=== PATIENT | female | born 1945 | race Caucasian/White ===

== ENCOUNTER → 2017-10-30 | Day surgery (SDC) | payer MEDICARE ==
[~2017-10-30] MED LIST: ACETAMINOPHEN325 M1 GT; ATORVASTATIN CA10 MG PO; COGENTIN1 MG PO; CYMBALTA20 MG GT; HALDOL5 MG GT; HYOSCYAMINE0.125 MG GT; LIPITOR20 MG GT; METOPROLOL TART25 MG GT; OMEPRAZOLE40 MG GT; PROPOFOL IV EMULSION 10 MG/ML 50 ML VIAL ONE; VENLAFAXINE HCL75 MG PO; Z.0.LEVOXYL100 MCG GT; Z.0.PRILOSEC40 MG PO; Z.0.ZOCOR20 MG PO
[2017-10-30 14:38] LABS: BASOPHILS # (AUTO) 0.1 (0.0-0.1); BASOPHILS % 0.6 % (0.0-1.0); EOSINOPHILS # (AUTO) 0.2 (0.0-0.4); EOSINOPHILS % 2.3 % (0.0-6.0); HEMATOCRIT 35.4 % (34.2-44.1); HEMOGLOBIN 11.6 g/dL (12.0-16.0); LYMPHOCYTES # (AUTO) 3.4 (1.0-3.2); LYMPHOCYTES % 39.5 % (18.0-39.1); MEAN CORPUSCULAR HEMOGLOBIN 30.3 pg (28-32); MEAN CORPUSCULAR HGB CONC 32.8 g/dL (31-35); MEAN CORPUSCULAR VOLUME 92.4 fL (81-99); MONOCYTES # (AUTO) 0.6 (0.2-0.8); MONOCYTES % 7.5 % (4.4-11.3); NEUTROPHILS # (AUTO) 4.3 (2.1-6.9); PLATELET COUNT 141 x10e3/uL (140-360); RED BLOOD COUNT 3.83 x10e6/uL (3.6-5.1); RED CELL DISTRIBUTION WIDTH 13.9 % (11.7-14.4)
--- NOTE | 2017-10-30 16:50 | Operative Report ---
DATE OF PROCEDURE: October 30, 2017 REFERRING PHYSICIAN: Dr. López. PROCEDURE PERFORMED: EGD with esophageal dilatation and biopsies. INDICATIONS FOR PROCEDURE: Is dysphagia, stricture on modified barium swallow. MEDICATION: Patient was done under MAC. Please see anesthesiologist's note. PROCEDURE: With patient in the left lateral decubitus position, flexible fiberoptic Olympus gastroscope was introduced into the esophagus under direct visualization without any difficulty. There was a tight stricture noted at approximately 30 cm from the incisors. It could not be traversed with the scope and it was dilated to size 38-Mozambican per Jones dilators. The scope was then re introduced into the esophagus and it traversed the stricture with ease which was measured at approximately 5 cm. The scope was then advanced with ease into the stomach traversing a moderate-sized hiatal hernia. The mucosa overlying the antrum and the body revealed some patchy erythema and low-grade to moderate edema and biopsies were obtained and sent to stain for H. pylori. The bumper of the PEG was noted to be in a good position. The pylorus was of normal contour and shape. Was intubated with ease and the scope was advanced all the way to the 2nd portion of the duodenum. The scope was then withdrawn slowly. Mucosa overlying the proximal 2nd portion and the duodenal bulb appeared to be within normal limits. The scope was then withdrawn back into the stomach and retroflexed and mucosa overlying the fundus appeared to be within normal limits. The previously described hiatal hernia was also noted in the retroflexed position. The scope was then straightened out. The stomach was decompressed. Scope was subsequently withdrawn. Patient tolerated procedure well. IMPRESSION: 1. Tight stricture distal esophagus dilated to size 38-Mozambican Jones. 2. Moderate-sized hiatal hernia. 3. Gastritis biopsied. Biopsies sent to stain for H. pylori. 4. Status post PEG tube insertion. PLAN: Follow up histology. Initiate Protonix 40 mg 1 p.o. a.c. b.i.d. The patient will need additional dilatation of the aforementioned stricture. Will discuss with the patient and her on their followup office visit. Job#: [id number] cc:SHERRI CRUM MD
== END | disposition home or self-care (01) ==
LOC: OR 12:57
PROVIDERS: ATTEND Internal Medicine Gastroenterology
DX: K22.2 Esophageal obstruction (principal); K29.70 Gastritis, unspecified, without bleeding; K44.9 Diaphragmatic hernia without obstruction or gangrene; Z93.1 Gastrostomy status; E03.9 Hypothyroidism, unspecified; F03.90 Unspecified dementia, unspecified severity, without behavioral disturbance, psychotic disturbance, mood disturbance, and anxiety; F31.9 Bipolar disorder, unspecified; F25.9 Schizoaffective disorder, unspecified
CPT/HCPCS: 36415; 43450; 85025; 88305; 88312; 93005

== ENCOUNTER → 2017-11-27 | Day surgery (SDC) | payer MEDICARE ==
[~2017-11-27] MED LIST changes: +FENTANYL CITRATE/PF 100MCG/2 ML INJ ONE; +LIDOCAINE HCL 2% LOCAL INJ 5 ML SDV VIAL INJ ONE; +ONDANSETRON HCL INJ 2 MG/ML VIAL ONE; +PANTOPRAZOLE 40 MG 10ML VIAL ONE
--- NOTE | 2017-11-27 11:51 | Operative Report ---
DATE OF PROCEDURE: November 27, 2017 REFERRING PHYSICIAN: Dr. López PROCEDURE PERFORMED: Esophagogastroduodenoscopy with biopsies and esophageal dilatation. INDICATIONS FOR PROCEDURE: Dysphagia, nausea, vomiting, history of tight esophageal stricture. MEDICATION: Patient was done under MAC. Please see anesthesiologist's note. PROCEDURE: With the patient in the left lateral decubitus position, the flexible fiberoptic Olympus gastroscope was introduced into the esophagus under direct visualization without any difficulty. The distal esophagus was tightly strictured and could not be traversed with the scope. The esophagus was then dilated to size 38-Kenyan Jones. The scope was then reintroduced into the esophagus, and the scope was then advanced with ease past the strictured distal esophagus, which was significantly traumatized with the dilatation with some mucosal tearing. There were some concentric rings noted in the esophagus which were suspicious for eosinophilic esophagitis. The scope was then advanced into the stomach, traversing a moderate-size hiatal hernia. Mucosa overlying the antrum and the body revealed some minimal patchy erythema. The bumper of the G-tube was noted to be in good position. The pylorus was intubated with ease, and the scope was advanced all the way to the 2nd portion of the duodenum. The scope was then withdrawn slowly. Mucosa overlying the proximal portion of the duodenal bulb appeared to be within normal limits. The scope was then withdrawn back into the stomach and retroflexed. Mucosa overlying the fundus appeared to be within normal limits. The previously described hiatal hernia was also noted in the retroflexed position. The scope was then straightened out. Stomach was decompressed. Biopsies of the esophagus were obtained on the way out to rule out eosinophilic esophagitis. Patient tolerated the procedure well. IMPRESSION 1. Distal esophageal stricture, tight, could not traverse with the scope initially. Dilated to size 38-Kenyan Jones. Biopsies were obtained to rule out eosinophilic esophagitis. 2. Moderate-size hiatal hernia. 3. Gastritis, minimal. 4. Gastrostomy tube bumper was noted to be in good position. PLAN: Follow up histology. Increase omeprazole to 40 mg 1 p.o. a.c. b.i.d. Patient will need additional dilatation in 10 days to 2 weeks. Job#: [id number] cc:SHERRI LÓPEZ MD
== END | disposition home or self-care (01) ==
LOC: OR 09:09
PROVIDERS: ATTEND Internal Medicine Gastroenterology
DX: K22.2 Esophageal obstruction (principal); K29.70 Gastritis, unspecified, without bleeding; K20.8 Other esophagitis; K44.9 Diaphragmatic hernia without obstruction or gangrene; Z93.1 Gastrostomy status; K22.8 Other specified diseases of esophagus; K21.9 Gastro-esophageal reflux disease without esophagitis; I10 Essential (primary) hypertension; E03.9 Hypothyroidism, unspecified; D64.9 Anemia, unspecified; F32.9 Major depressive disorder, single episode, unspecified; F03.90 Unspecified dementia, unspecified severity, without behavioral disturbance, psychotic disturbance, mood disturbance, and anxiety
CPT/HCPCS: 43239; 43450; J2001; J2405

== ENCOUNTER → 2017-12-10 | Day surgery (SDC) | payer MEDICARE ==
[~2017-12-10] MED LIST changes: -FENTANYL CITRATE/PF 100MCG/2 ML INJ ONE; -LIDOCAINE HCL 2% LOCAL INJ 5 ML SDV VIAL INJ ONE; +METOCLOPRAMIDE HCL 10 MG/2ML VIAL ONE; -PANTOPRAZOLE 40 MG 10ML VIAL ONE; +PROPOFOL IV EMULSION 10 MG/ML 20 ML VIAL ONE; -PROPOFOL IV EMULSION 10 MG/ML 50 ML VIAL ONE
--- OUTSIDE RECORDS SUMMARY | 2017-12-10 12:23 | XMS REPORT ---
Author Author [facility] Address Unknown Phone Unavailable Care Team Providers Care Air Bag Stripper Name Role Phone ARLEEN MENDOZA Unavailable Unavailable Problems This patient has no known problems. Allergies, Adverse Reactions, Alerts This patient has no known allergies or adverse reactions. Medications This patient has no known medications. Results Test Description Test Time Test Comments Text Results Atomic Results Result Comments CT ABDOMEN/PELVIS WO [place] [address] Patient Name: HENRIQUE ROLLE MR #: [id number] : 1945 Age/Sex: 72/F Req # : [id number] Adm Physician: Ordered by: SHIVAM URIBE MD Report # : [id number] Location: ER Room/Bed: Procedure: [id number] CT/CT ABDOMEN/PELVIS WO Exam Date: 07/29/17 Exam Time: 2040 REPORT STATUS: Signed EXAM: CT Abdomen and Pelvis WITHOUT contrast INDICATION: Left lower quadrant pain, fever COMPARISON: None. TECHNIQUE: Abdomen and pelvis were scanned utilizing a multidetector helical scanner from the lung base to the pubic symphysis without administration of IV contrast. Absence of intravenous contrast decreases sensitivity for detection of focal lesions and vascular pathology. Coronal and sagittal reformations were obtained. Routine protocol was performed. IV CONTRAST: None. ORAL CONTRAST: Gastrografin RADIATION DOSE: Total DLP: 614.47 mGy*cm Estimated effective dose: (DLP x 0.015 x size factor) mSv COMPLICATIONS: None FINDINGS: LINES and TUBES: None. LOWER THORAX: Circumferential thickening of the lower thoracic esophagus. The lungs are clear with minimal bibasilar atelectasis HEPATOBILIARY: There is a 1.5 cm simple cyst in segment 6 of the liver, series 2, image 26 1.7 cm hypodensity consistent with simple cyst in segment 7, series 2, image 18. No biliary ductal dilation. GALLBLADDER: There are cholecystectomy clips. SPLEEN: No splenomegaly. PANCREAS: No focal masses or ductal dilatation. ADRENALS: No adrenal nodules KIDNEYS/URETERS: No hydronephrosis. No cystic or solid mass lesions. No stones. GI TRACT: No abnormal distention, wall thickening, or evidence of bowel obstruction. Appendix is normal. PELVIC ORGANS/BLADDER: The visualized bladder is obscured by beam hardening artifact from bilateral hip arthroplasty. The visualized rectum, uterus and adnexa are unremarkable. LYMPH NODES: No lymphadenopathy. VESSELS: There is moderate atherosclerotic disease in the aorta and major arterial branches. PERITONEUM / RETROPERITONEUM: No free air or fluid. BONES: There are degenerative changes in the lumbar spine. Bilateral total hip arthroplasty which limits evaluation of the pelvis. SOFT TISSUES: Unremarkable. IMPRESSION: 1. No evidence of acute intra-abdominal or pelvic abnormality. 2. Circumferential thickening of the lower thoracic esophagus may represent esophagitis in the appropriate clinical setting. Correlation with nonemergent EGD is recommended if clinically feasible 3. Liver cysts. 4. Degenerative changes of the thoracolumbar spine. Signed by: Dr. Lars Mcghee M.D. on 07/29/2017 9:19 PM Dictated By: LARS PETTY MD 18 Transcribed By: GUILLAUME on 07/29/172118 COPY TO: SHIVAM URIBE MD CT BRAIN WO [place] [address] Patient Name: HENRIQUE ROLLE MR #: [id number] : 1945 Age/Sex: 72/F Req #: [id number] Adm Physician: Ordered by: ARLEEN MENDOZA MD Report #: [id number] Location: Room/Bed: Procedure: [id number] CT/CT BRAIN WO Exam Date: 07/29/17 Exam Time: 1748 REPORT STATUS: Signed Exam: Head CT without contrast History: Altered mental status Comparison studies: None Technique: Axial images were obtained from the skull base to the vertex. Coronal and sagittal images reconstructed from the axial data. Intravenous contrast: None Findings: Exam is somewhat limited by artifacts related to patient motion artifact. Evaluation of the posterior fossa is especially limited. Scalp: No abnormalities. Bones: No fractures, blastic or lytic lesions. Brain sulci: Appropriate for age. Ventricles: Normal in size and configuration. No hydrocephalus. Extra-axial spaces: No masses, no fluid collection. Parenchyma: No gross masses, acute hemorrhage, or large acute cortical vascular insults. Sellar/suprasellar region: No abnormalities. Craniocervical junction: Patent foramen magnum. No Chiari one malformation. Incidental findings: Atherosclerotic calcifications in the carotid siphons. IMPRESSION: 1. Exam is limited by artifacts related patient motion. 2. No gross acute intracranial abnormalities. 3. Mild age-related generalized volume loss. Signed by: Dr. Federico Ga M.D. on 07/29/2017 8:43 PM Dictated By: FEDERICO GA MD 42 Transcribed By: GUILLAUME on 07/29/172042 COPY TO: ARLEEN MENDOZA MD CHEST 2 VIEWS [place] [address] Patient Name: HENRIQUE ROLLE MR #: [id number] : 1945 Age/Sex: 72/F Req #: [id number] Adm Physician: Ordered by: ARLEEN MENDOZA MD Report #: [id number] Location: Room/Bed: Procedure: [id number] DX/CHEST 2 VIEWS Exam Date: Exam Time: REPORT STATUS: Signed PROCEDURE: Frontal and lateral views of the chest. COMPARISON: 04/19/2017 INDICATIONS: SEPSIS, DEHYDRATION FINDINGS: Lines/tubes: None. Lungs: The lungs are well inflated and clear. There is no evidence of pneumonia or pulmonary edema. A 1.4 cm rounded opacity projected over the left midlung appears to be a button external to the patient. Pleura: There is no pleural effusion or pneumothorax. Heart and mediastinum: The heart and the mediastinum are normal. Bones: Multilevel degenerative changes of the thoracic spine. Severe degenerative changes of the shoulders, unchanged. IMPRESSION: 1. No acute cardiopulmonary disease. 2. 1.4 cm round opacity projected over the left midlung appears to be a button external to the patient. Consider repeat imaging with garment removed. Dictated by: Kwaku Christianson M.D. on 07/29/2017 at 18:27 Electronically approved by: Kwaku Christianson M.D. on 07/29/2017 at 18:27 Dictated By: KWAKU CHRISTIANSON MD 26 Transcribed By: ANALILIA on 07/29/171826 COPY TO: ARLEEN MENDOZA MD
--- NOTE | 2017-12-10 15:43 | Operative Report ---
DATE OF PROCEDURE: December 10, 2017 REFERRING PHYSICIAN: Dr. López. PROCEDURE PERFORMED: Esophagogastroduodenoscopy with esophageal dilatation. INDICATIONS FOR ESOPHAGOGASTRODUODENOSCOPY: Dysphagia to solids. History of tight esophageal stricture. MEDICATION: Patient was done under MAC. Please see anesthesiologist's note. PROCEDURE: With the patient in the left lateral decubitus position, the flexible fiberoptic Olympus gastroscope was introduced into the esophagus under direct visualization without any difficulty. The esophagus appeared to have restrictured again to the point where the scope could not traverse the strictured area. The scope was then withdrawn, and the esophagus was then dilated to size 38-Persian Jonse. The scope was then reintroduced into the esophagus, and several tears were noted in the esophagus but the scope traversed the strictured area with ease into the stomach. There was a moderate-sized hiatal hernia as described earlier. The scope was then withdrawn, and patient tolerated the procedure well. IMPRESSION: 1. Tight long stricture, distal esophagus, dilated to a size 38-Persian Jones. 2. Moderate-sized hiatal hernia. 3. Gastritis, mild. PLAN: Continue omeprazole 40 mg 1 p.o. a.c. b.i.d. Will attempt to redilate in 1 week. If esophagus restrictures again in 1 week to the same degree as was encountered today, will consider a referral to Dr. Duron at the [facility]. Job#: [id number] EV cc:SHERRI LÓPEZ MD
== END | disposition home or self-care (01) ==
LOC: OR 12:20
PROVIDERS: ATTEND Internal Medicine Gastroenterology
DX: K22.2 Esophageal obstruction (principal); K29.70 Gastritis, unspecified, without bleeding; K20.8 Other esophagitis; K21.9 Gastro-esophageal reflux disease without esophagitis; K44.9 Diaphragmatic hernia without obstruction or gangrene; I10 Essential (primary) hypertension; E03.9 Hypothyroidism, unspecified; I49.1 Atrial premature depolarization; R32 Unspecified urinary incontinence; F31.9 Bipolar disorder, unspecified; F03.90 Unspecified dementia, unspecified severity, without behavioral disturbance, psychotic disturbance, mood disturbance, and anxiety
CPT/HCPCS: 43235; 43450; J2405; J2765

== ENCOUNTER → 2017-12-16 | Day surgery (SDC) | payer MEDICARE ==
[~2017-12-16] MED LIST changes: +FENTANYL CITRATE/PF 100MCG/2 ML INJ ONE; +LIDOCAINE HCL 2% LOCAL INJ 5 ML SDV VIAL INJ ONE; -METOCLOPRAMIDE HCL 10 MG/2ML VIAL ONE; +MIDAZOLAM HCL 2 MG/2 ML VIAL ONE; -ONDANSETRON HCL INJ 2 MG/ML VIAL ONE
--- NOTE | 2017-12-16 10:57 | Operative Report ---
DATE OF PROCEDURE: December 16, 2017 REFERRING PHYSICIAN: Dr. López PROCEDURE PERFORMED: Esophagogastroduodenoscopy with esophageal dilatation. INDICATIONS FOR EGD: Dysphagia to solids and history of a tight esophageal stricture. MEDICATION: Patient was done under MAC. Please see anesthesiologist's note. PROCEDURE: With the patient in the left lateral decubitus position, the flexible fiberoptic Olympus gastroscope was introduced into the esophagus under direct visualization without any difficulty. The tight stricture was noted at 30 cm from the incisors, which the scope could not traverse. The scope was then withdrawn, and the esophageal stricture was then dilated to size 42-Georgian Jones. The scope was then reintroduced into the esophagus, and the strictured 4-cm segment was traversed with ease with the scope. The scope was then traversed approximately a 4-5 cm hiatal hernia. Mucosa overlying the antrum revealed some patchy erythema. The bumper of the G-tube was noted to be in good position. The pylorus was of normal contour and shape. It was intubated with ease. The scope was advanced into the stomach, and the bumper of the G-tube was noted to be in good position. There was some patchy erythema noted in the antrum. The scope was retroflexed, and the previously described large hiatal hernia was also noted in the retroflexed position. The scope was then straightened out. It was subsequently withdrawn. Patient tolerated the procedure well. IMPRESSION 1. Long tight esophageal stricture dilated to size 42-Georgian Jones. 2. Large hiatal hernia. 3. Bumper of gastrostomy tube in good position. Increase omeprazole to 40 mg 1 p.o. a.c. b.i.d. Case discussed with Dr. Foreign Russ, a general surgeon. Will set up an appointment with his office for surgical opinion. Job#: [id number] RI cc:MD SHERRI SHELBY MD
== END | disposition home or self-care (01) ==
LOC: OR 08:53
PROVIDERS: ATTEND Internal Medicine Gastroenterology
DX: K22.2 Esophageal obstruction (principal); K44.9 Diaphragmatic hernia without obstruction or gangrene; Z93.1 Gastrostomy status; K21.9 Gastro-esophageal reflux disease without esophagitis; I10 Essential (primary) hypertension; I49.3 Ventricular premature depolarization; F03.90 Unspecified dementia, unspecified severity, without behavioral disturbance, psychotic disturbance, mood disturbance, and anxiety
CPT/HCPCS: 43235; 43450; J2001; J2250

== ENCOUNTER → 2018-01-09 | Outpatient (CLI) | payer MEDICARE ==
[~2018-01-09] MED LIST changes: +DIATRIZOATE MEGL/DIATRIZOA SOD 120 ML BTL PO ONE; -FENTANYL CITRATE/PF 100MCG/2 ML INJ ONE; -LIDOCAINE HCL 2% LOCAL INJ 5 ML SDV VIAL INJ ONE; -MIDAZOLAM HCL 2 MG/2 ML VIAL ONE; -PROPOFOL IV EMULSION 10 MG/ML 20 ML VIAL ONE
--- NOTE | 2018-01-09 09:43 | Diagnostic Imaging Report ---
PROCEDURE:X-RAY UPPER GI SERIES WITH AIR CONTRAST COMPARISON:[facility], CT, CT ABDOMEN/PELVIS WO, 07/29/2017, 20:41. INDICATIONS:Presurgical evaluation. Distal esophageal stricture. Technique: Thin and thick barium was administered for the patient to drink. The patient cannot tolerate effervescent crystals for gaseous distention of the esophagus. Subsequently, gas was instilled via the indwelling gastrostomy. Fluoroscopy time: 2.1 minutes. Cumulative air kerma: 15.93 mGy. FINDINGS: Distal esophageal stricture spanning from about the level of T7-T8 through the gastroesophageal junction. Resulting occasional retrograde pulsion and bolus stasis. No aspiration. Stomach: Small sliding-type hiatal hernia. Mucosal filling defect at the cardia (see image 504/1008). The stomach otherwise demonstrates normal mucosal contour and distensibility. The duodenal sweep is grossly unremarkable. CONCLUSION: 1. Distal esophageal stricture resulting in partial obstruction. 2. Small sliding-type hiatal hernia. 3. Filling defect at the gastric cardia concerning for an underlying mucosal-based mass. This corresponds to focal nodular, mass-like thickening as seen on the CT from July 29, 2017 (see image 42 series 301 over that study). Dictated by: Kaiden Herrera M.D. on 01/09/2018 at 9:43 Electronically approved by: Kaiden Herrera M.D. on 01/09/2018 at 9:43
== END ==
LOC: DX 08:00
PROVIDERS: ATTEND Surgery
DX: K22.2 Esophageal obstruction (principal)
CPT/HCPCS: 74220; 74246; Q9963

== ENCOUNTER 2018-02-10 07:21 | Inpatient (IN) | payer MEDICARE ==
[2018-02-03 11:23] LABS: BASOPHILS # (AUTO) 0.1 (0.0-0.1); BASOPHILS % 0.6 % (0.0-1.0); EOSINOPHILS # (AUTO) 0.1 (0.0-0.4); EOSINOPHILS % 0.7 % (0.0-6.0); HEMOGLOBIN 13.3 g/dL (12.0-16.0); LYMPHOCYTES # (AUTO) 3.3 (1.0-3.2); LYMPHOCYTES % 32.1 % (18.0-39.1); MEAN CORPUSCULAR HEMOGLOBIN 29.7 pg (28-32); MEAN CORPUSCULAR HGB CONC 32.4 g/dL (31-35); MEAN CORPUSCULAR VOLUME 91.5 fL (81-99); MONOCYTES # (AUTO) 0.7 (0.2-0.8); MONOCYTES % 6.4 % (4.4-11.3); NEUTROPHILS # (AUTO) 6.2 (2.1-6.9); PLATELET COUNT 320 x10e3/uL (140-360); RED BLOOD COUNT 4.48 x10e6/uL (3.6-5.1); RED CELL DISTRIBUTION WIDTH 14.9 % (11.7-14.4)
[2018-02-03 11:39] LABS: ANION GAP 13.6 mmol/L (8-16); BLOOD UREA NITROGEN 12 mg/dL (7-26); BUN/CREATININE RATIO 16 (6-25); CALCIUM 9.3 mg/dL (8.4-10.2); CARBON DIOXIDE 27 mmol/L (22-29); CHLORIDE 103 mmol/L (98-107); CREATININE, SERUM 0.76 mg/dL (0.57-1.11); EST GLOMERULAR FILTRATION RATE > 60 ML/MIN (60-); GLUCOSE 95 mg/dL (74-118); POTASSIUM 4.6 mmol/L (3.5-5.1); SODIUM 139 mmol/L (136-145)
--- NOTE | 2018-02-03 11:45 | Diagnostic Imaging Report ---
PROCEDURE: Frontal and lateral views of the chest. COMPARISON: Patients [facility], , CHEST 2 VIEWS, 07/29/2017, 17:48. INDICATIONS: PRE-OP FOR ESOPHAGEAL STRICTURE FINDINGS: Lines/tubes: None. Lungs: The lungs are mildly hyperinflated. Biapical pleural-parenchymal opacities suggestive of scarring. There is no evidence of pneumonia or pulmonary edema. Pleura: There is no pleural effusion or pneumothorax. Heart and mediastinum: The heart and the mediastinum are normal. Bones: No acute bony abnormality. Degenerative changes of the thoracic spine. Severe bilateral degenerative changes of the glenohumeral joints. IMPRESSION: 1. No acute cardiopulmonary disease. Libertad Hope M.D. Dictated by: Libertad Hope M.D. on 02/03/2018 at 11:46 Electronically approved by: Libertad Hope M.D. on 02/03/2018 at 11:46
[~2018-02-10] VITALS: Ht 167.6 cm; Wt 64.0 kg
[2018-02-10] VITALS (32 sets, daily range): BP systolic 94–135; BP diastolic 44–100
[~2018-02-10 07:21] MED LIST changes: -DIATRIZOATE MEGL/DIATRIZOA SOD 120 ML BTL PO ONE
[2018-02-10] MEDS ORDERED: HEPARIN SOD/SOD CHLORIDE 1,000 ML ONE (07:54)
[2018-02-10] MEDS ORDERED: MINERAL OIL STERILE 10ML VIAL ONE ×2 (09:32→11:54)
[2018-02-10] MEDS ORDERED: LEVOFLOXACIN 500MG/D5W 100ML 100 ML IV ONE (10:35)
[2018-02-10] MEDS ORDERED: ACETAMINOPHEN 1000 MG/100 ML IV PRN (16:45)
[2018-02-10] MEDS ORDERED: LEVOFLOXACIN 500MG/D5W 100ML 100 ML IV SCH (16:45)
[2018-02-10] MEDS: SODIUM CHLORIDE 0.9% 250ML IRRIG IR SCH ×2 (16:45→21:25)
[2018-02-10] MEDS ORDERED: FENTANYL CITRATE/PF 100MCG/2 ML INJ ONE (18:26)
[2018-02-10] MEDS ORDERED: MIDAZOLAM HCL 2 MG/2 ML VIAL ONE (18:26)
[2018-02-10] MEDS ORDERED: HALOPERIDOL 5 MG TAB PO PRN (18:45)
[2018-02-10] MEDS ORDERED: MIDAZOLAM HCL 25 MG in DEXTROSE 5% 50ML 45 ML IV PRN (18:45)
[2018-02-10] MEDS: MIDAZOLAM HCL 25 MG in DEXTROSE 5% 50ML 45 ML IV PRN ×2 (19:00→22:28)
[2018-02-10] MEDS: HYDROMORPHONE 1MG/1ML INJ IV PRN (19:00)
[2018-02-10] MEDS: DEXTROSE 5%/LACTATED RINGERS 1,000 ML IV SCH (19:15)
--- NOTE | 2018-02-10 19:52 | Diagnostic Imaging Report ---
EXAMINATION: CHEST SINGLE (PORTABLE) INDICATION: Post chest tube insertion COMPARISON: 02/03/2018. FINDINGS: AP view. Overlying artifact in the right hemithorax. TUBES and LINES: Right thoracostomy tube with distal tip projected on the right superior hemithorax medially. Tube (appearance similar to thoracostomy tube) projected on the left hemithorax with distal tip extending to the left in the neck, not included. Right IJ central venous catheter with distal tip projected on the mid SVC. Endotracheal tube with distal tip approximately 2.4 cm proximal to the uche. LUNGS: Patchy density in the mid lung bilaterally, right greater then left may be in part related to overlying artifact summation of shadows. PLEURA: No pleural effusion. Small left apical pneumothorax with a narrow gap of 5 mm. There is also a small left apical pneumothorax with an air gap of 1.4 cm. HEART AND MEDIASTINUM: The cardiomediastinal silhouette is unremarkable. BONES AND SOFT TISSUES: No acute osseous lesion. Degenerative changes of the glenohumeral joint bilaterally. UPPER ABDOMEN: No free air under the diaphragm. IMPRESSION: 1. Small right apical pneumothorax with left thoracostomy tube in place. 2. Small left apical pneumothorax with a gap of 1.4 cm. Signed by: Dr. Libertad Hope M.D. on 02/10/2018 7:48 PM
[2018-02-10 20:14] LABS: FREE THYROXINE INDEX 1.9018 (1.4-3.8); THYROID STIMULATING HORMONE 1.562 uIU/mL (0.350-4.940)
[2018-02-10] MEDS: METRONIDAZOLE 500MG/NS 100ML 100 ML IV SCH (21:24)
[2018-02-10] MEDS: PANTOPRAZOLE 40 MG 10ML VIAL IV SCH (21:24)
--- NOTE | 2018-02-10 22:08 | Operative Report ---
DATE OF PROCEDURE: February 10, 2018 PREOPERATIVE DIAGNOSIS: Lower esophageal stricture with inability to eat. POSTOPERATIVE DIAGNOSIS: Long lower esophageal stricture with inability to eat. OPERATION PERFORMED: Exploratory laparotomy and right thoracotomy, esophagogastrectomy with thoracoabdominal esophagogastrostomy and pyloroplasty. METAL MIXER: Dr. Ellis Russ and Jonny BAIRD. ANESTHESIA: General. COMPLICATIONS: None. ESTIMATED BLOOD LOSS: 250 mL. DESCRIPTION OF PROCEDURE: With the patient lying in bed in the supine position under good general endotracheal anesthesia, the abdomen was prepped with Betadine solution and draped in the usual manner. An upper midline incision was made. It was carried down through the subcutaneous tissue and through the midline fascia. The peritoneum was opened, and the abdomen was entered. Upon entering the abdominal cavity, some adhesions were encountered from the patient's previous cholecystectomy. All of these were slowly and carefully taken down so that we could mobilize the distal stomach and the duodenum, and this was done without any difficulty. After this was done, the peritoneum overlying the hiatus was then opened and the esophagus was dissected and retracted with a [place] drain. The short gastrics were then slowly and carefully taken down using the Enseal device. The old gastrostomy site was stapled with the KACIE 75 stapling device, and we thus had mobilized the entire upper half of the stomach without any difficulty. We decided at this point to go ahead and do the pyloroplasty first. The pylorus was then opened longitudinally without any difficulty and was then closed transversely using 2 layers of inner layer using a [place]-type suture of 3-0 chromic, and the outside layer was done with interrupted sutures of 3-0 silk. After this was done, the esophagus was then dissected in its entire abdominal component. The area around the esophagogastric junction, which was shown to be strictured on the preoperative upper GI series, actually seemed to be more pliable than we expected. The esophagus was then divided at the level of the lower esophagus as it joined the hiatus in the lower chest, and the stomach was similarly divided with an application of the TA-90 stapler and the esophagogastrectomy was performed. At this point, the esophagus was then opened, and what we found was that the patient had a continuing stricture and a very, very thickened esophagus that extended for several inches up into the lower chest, all the way up to the level of the lower pulmonary vein, and this stricture extended all the way up there, which was not what was suspected from the preoperative evaluation. At this point, it became evident that this could not be done entirely transabdominally and we would have to go through the chest to do the anastomosis. I scrubbed out of the case at this point, and I spoke to the patient's and explained to him that the operation could not be done entirely transabdominally due to the fact that there was a rather long stricture which was somewhat unsuspected from the preoperative evaluation and that we needed to go ahead and go through the chest in order to be able to bring up the stomach to a much higher position and in order to be able to do an anastomosis that would include resection of the entire strictured area as the esophagus in the distal portion of the chest was similarly very thickened and fibrotic. After doing this, the patient was reprepped and draped to include the right chest, and a right thoracotomy anterior incision was performed. It was carried down through the subcutaneous tissue, and the 5th interspace was picked and the intercostal muscle was divided and the chest was entered without any difficulty. At this point, we quickly identified the lower esophagus. There was again a lot of fibrosis of this tissue. We went ahead and proceeded to dissect it upwards all the way up to about the mid chest, at which point the esophagus appeared to be much more pliable. The esophagus was then divided at this point, and a lower esophageal segment was sent as a separate specimen. A 29 EEA stapler was then placed in the lower esophagus and fixed in place with a purse-string suture of 2-0 Prolene. The stomach that had been previously mobilized reached up into the chest without any difficulty, and a gastrotomy was then made at the area of the old gastrostomy tube, and the 29 EEA stapler was then brought out anteriorly in the fundus and joined with the anvil, and the stapler was then slowly and carefully closed and there was no tension whatsoever. The stapler was then fired, and two good doughnuts were obtained. Gloves and instruments were changed, and the anastomosis was then reinforced with several sutures of 2-0 silk. Once this was done, the nasogastric tube was properly placed into the stomach. The whole chest and abdomen were copiously irrigated with saline solution, and perfect hemostasis was ascertained. A number 32 chest tube was then placed at the anterior axillary line and brought out through a separate stab wound incision and placed posteriorly and sutured to the skin with number 1 Mersilene. The chest incision was closed first. Intercostals of number 1 chromic were used. The intercostal musculature was closed with a running suture of 0 Vicryl. The muscle layer was closed with a running suture of 0 Vicryl. The subcutaneous tissue was approximated with 2-0 chromic, and the skin was closed with a running vertical mattress suture of 3-0 nylon. Attention was then paid to the abdomen, and again good hemostasis was ascertained. The whole area was thoroughly irrigated and all the excess fluid was aspirated, and all of the incisions appeared to be intact and the wound was then closed in layers. The peritoneum was closed with a running suture of number 1 Vicryl. The midline fascia was closed with a running suture of number 1 Vicryl. A 1/4 inch Jeny drain was left in the subcutaneous tissue, and the skin was closed with clips. A dressing was applied. The sponge, lap and needle count was correct. The patient tolerated the procedure well and returned to the recovery room in stable condition. Job#: [id number]
[2018-02-10] MEDS: HALOPERIDOL 5 MG TAB PO SCH (22:22)
[2018-02-11] VITALS (92 sets, daily range): BP systolic 86–139; BP diastolic 38–96
[2018-02-11] MEDS: SODIUM CHLORIDE 0.9% 250ML IRRIG IR SCH ×6 (00:10→20:19)
[2018-02-11] MEDS: METRONIDAZOLE 500MG/NS 100ML 100 ML IV SCH ×4 (01:34→18:00)
[2018-02-11] MEDS: HYDROMORPHONE 1MG/1ML INJ IV PRN ×8 (01:55→22:30)
[2018-02-11] MEDS: MIDAZOLAM HCL 25 MG in DEXTROSE 5% 50ML 45 ML IV PRN ×5 (02:07→19:29)
[2018-02-11] MEDS: DEXTROSE 5%/LACTATED RINGERS 1,000 ML IV SCH ×3 (05:37→17:45)
[2018-02-11 06:09] LABS: BASOPHILS % 0.2 % (0.0-1.0); HEMATOCRIT 29.4 % (34.2-44.1); HEMOGLOBIN 9.8 g/dL (12.0-16.0); LYMPHOCYTES # (AUTO) 0.9 (1.0-3.2); LYMPHOCYTES % 6.1 % (18.0-39.1); MEAN CORPUSCULAR HEMOGLOBIN 30.3 pg (28-32); MEAN CORPUSCULAR HGB CONC 33.3 g/dL (31-35); MONOCYTES # (AUTO) 1.1 (0.2-0.8); MONOCYTES % 7.2 % (4.4-11.3); NEUTROPHILS # (AUTO) 12.8 (2.1-6.9); NEUTROPHILS % 86.2 % (38.7-80.0); PLATELET COUNT 246 x10e3/uL (140-360); RED BLOOD COUNT 3.23 x10e6/uL (3.6-5.1); RED CELL DISTRIBUTION WIDTH 14.6 % (11.7-14.4)
[2018-02-11 06:32] LABS: ALANINE AMINOTRANSFERASE 39 IU/L (0-55); ALBUMIN 2.2 g/dL (3.5-5.0); ALKALINE PHOSPHATASE 49 IU/L (40-150); ANION GAP 9.6 mmol/L (8-16); BLOOD UREA NITROGEN 10 mg/dL (7-26); BUN/CREATININE RATIO 14 (6-25); CALCIUM 7.7 mg/dL (8.4-10.2); CARBON DIOXIDE 20 mmol/L (22-29); CHLORIDE 112 mmol/L (98-107); CREATININE, SERUM 0.73 mg/dL (0.57-1.11); EST GLOMERULAR FILTRATION RATE > 60 ML/MIN (60-); GLUCOSE 214 mg/dL (74-118); POTASSIUM 3.6 mmol/L (3.5-5.1); SODIUM 138 mmol/L (136-145)
--- NOTE | 2018-02-11 06:47 | Diagnostic Imaging Report ---
EXAM: CHEST SINGLE (PORTABLE), AP 1 view INDICATION: Intubated COMPARISON: AP view of the chest February 10, 2018 FINDINGS: LINES/TUBES: Endotracheal tube terminates 4 cm above the uche. Nasal/orogastric tube courses below the diaphragm. Stable position of right internal jugular vein central line. Stable position of right chest tube. LUNGS: Hazy opacities in each lung. PLEURA: No effusions or pneumothorax. HEART AND MEDIASTINUM: Stable appearance. BONES AND SOFT TISSUES: No acute findings. IMPRESSION: No evidence of a pneumothorax. Signed by: Dr. Tessie Andujar M.D. on 02/11/2018 6:43 AM
[2018-02-11] MEDS: HALOPERIDOL 5 MG TAB PO SCH ×2 (09:00→15:47)
[2018-02-11] MEDS: LEVOFLOXACIN 500MG/D5W 100ML 100 ML IV SCH (11:45)
--- NOTE | 2018-02-11 15:43 | Consultation ---
DATE OF CONSULTATION: February 10, 2018 PULMONARY CONSULTATION Patient of Dr. Foreign Russ, Dr. López. HISTORY: Unfortunate 72-year-old woman with a history of esophageal stricture, which was complex requiring thoracoabdominal esophagogastrectomy and pyloroplasty today. She is currently intubated, awakening. PAST MEDICAL HISTORY: She has a history of bipolar disorder. She has had PEG in the past. She has had dilatation of esophagus in the past. HOME MEDICATIONS: Have included Synthroid, Lipitor, Cogentin, Haldol, Levoxyl . PHYSICAL EXAMINATION: GENERAL: She is a well-developed slight white female, awakening. VITAL SIGNS: Blood pressure 103/80, pulse 102. She is afebrile. HEAD: Normocephalic, atraumatic. EYES: Extraocular movements intact. LUNGS: Clear anteriorly. HEART: Regular rhythm. ABDOMEN: Midline surgical wound. EXTREMITIES: Not edematous. PLAN: To continue mechanical ventilator support. Check thyroid function. Resume home medications when feasible. Versed for sedation. Ventilator support at least overnight. Thank you for this kind referral. Job#: [id number]
[2018-02-11] MEDS: PANTOPRAZOLE 40 MG 10ML VIAL IV SCH (16:45)
[2018-02-11] MEDS ORDERED: SODIUM CHLORIDE 0.9% 500ML 500 ML IV ONE (18:30)
[2018-02-11] MEDS ORDERED: ONDANSETRON HCL INJ 2 MG/ML VIAL ONE (19:39)
[2018-02-11] MEDS ORDERED: PHENYLEPHRINE HCL 1% 10 MG/ML VIAL ONE (19:39)
[2018-02-11] MEDS ORDERED: SEVOFLURANE INHAL SOLN 250 ML PEN BTL ONE (19:39)
[2018-02-11] MEDS ORDERED: VASOPRESSIN INJ 20 UNIT/ML VIAL ONE (19:39)
[2018-02-11] MEDS ORDERED: EPHEDRINE SULFATE INJ 50 MG/10 ML SYR ONE (19:39)
[2018-02-11] MEDS ORDERED: PROPOFOL IV EMULSION 10 MG/ML 20 ML VIAL ONE (19:39)
[2018-02-11] MEDS ORDERED: ROCURONIUM BROMIDE 10 MG/ML 5ML VIAL ONE (19:39)
[2018-02-11] MEDS ORDERED: DEXAMETHASONE SOD PHOS INJ 4 MG/ML VIAL ONE (19:39)
[2018-02-11] MEDS ORDERED: LIDOCAINE HCL 2% LOCAL INJ 5 ML SDV VIAL INJ ONE (19:39)
[2018-02-11] MEDS: HALOPERIDOL LACTATE 5 MG/ML VIAL IM SCH (21:02)
[2018-02-12] VITALS (31 sets, daily range): BP systolic 83–125; BP diastolic 40–66
[2018-02-12] MEDS: METRONIDAZOLE 500MG/NS 100ML 100 ML IV SCH ×4 (00:16→18:12)
[2018-02-12] MEDS: SODIUM CHLORIDE 0.9% 250ML IRRIG IR SCH ×7 (00:16→21:27)
[2018-02-12] MEDS: MIDAZOLAM HCL 25 MG in DEXTROSE 5% 50ML 45 ML IV PRN (03:41)
[2018-02-12] MEDS: HYDROMORPHONE 1MG/1ML INJ IV PRN ×5 (04:02→19:15)
--- NOTE | 2018-02-12 05:55 | Diagnostic Imaging Report ---
EXAM: CHEST SINGLE (PORTABLE), AP 1 view INDICATION: Intubated, esophageal stricture COMPARISON: AP view of the chest February 11, 2018 FINDINGS: LINES/TUBES: Stable position of endotracheal tube, nasal/orogastric tube, right internal jugular vein central line and right chest tube. LUNGS: Stable opacities in each lung base. PLEURA: Trace right apical pneumothorax. HEART AND MEDIASTINUM: Stable appearance. BONES AND SOFT TISSUES: Subcutaneous emphysema right lateral chest wall. IMPRESSION: Trace right apical pneumothorax. Signed by: Dr. Tessie Andujar M.D. on 02/12/2018 5:52 AM
[2018-02-12] MEDS: DEXTROSE 5%/LACTATED RINGERS 1,000 ML IV SCH ×3 (06:02→20:00)
[2018-02-12 06:12] LABS: BASOPHILS % 0.3 % (0.0-1.0); EOSINOPHILS # (AUTO) 0.3 (0.0-0.4); EOSINOPHILS % 2.2 % (0.0-6.0); HEMATOCRIT 24.4 % (34.2-44.1); HEMOGLOBIN 8.1 g/dL (12.0-16.0); LYMPHOCYTES # (AUTO) 2.2 (1.0-3.2); LYMPHOCYTES % 15.4 % (18.0-39.1); MEAN CORPUSCULAR HEMOGLOBIN 30.2 pg (28-32); MEAN CORPUSCULAR HGB CONC 33.2 g/dL (31-35); MONOCYTES # (AUTO) 0.9 (0.2-0.8); NEUTROPHILS # (AUTO) 10.8 (2.1-6.9); NEUTROPHILS % 75.7 % (38.7-80.0); PLATELET COUNT 195 x10e3/uL (140-360); RED BLOOD COUNT 2.68 x10e6/uL (3.6-5.1); RED CELL DISTRIBUTION WIDTH 15.2 % (11.7-14.4)
[2018-02-12 06:33] LABS: ALANINE AMINOTRANSFERASE 27 IU/L (0-55); ALKALINE PHOSPHATASE 53 IU/L (40-150); BLOOD UREA NITROGEN 8 mg/dL (7-26); BUN/CREATININE RATIO 13 (6-25); CALCIUM 7.8 mg/dL (8.4-10.2); CARBON DIOXIDE 22 mmol/L (22-29); CHLORIDE 113 mmol/L (98-107); CREATININE, SERUM 0.62 mg/dL (0.57-1.11); EST GLOMERULAR FILTRATION RATE > 60 ML/MIN (60-); GLUCOSE 114 mg/dL (74-118); SODIUM 140 mmol/L (136-145)
[2018-02-12 09:13] LABS: ABG HCO3 20 mmol/L (23-28); ABG PCO2 37 mmHg (41-51); ABG PH 7.34 (7.31-7.41); ABG PO2 128 mmHg (80-105)
[2018-02-12] MEDS ORDERED: SODIUM CHLORIDE 0.9% 1000ML 1,000 ML ONE (09:34)
[2018-02-12] MEDS: HALOPERIDOL LACTATE 5 MG/ML VIAL IM SCH ×2 (10:37→21:00)
[2018-02-12] MEDS: POTASSIUM CHLORIDE 20MEQ/100ML 100 ML IV PRN (10:38)
[2018-02-12] MEDS: LEVOFLOXACIN 500MG/D5W 100ML 100 ML IV SCH (12:46)
--- NOTE | 2018-02-12 14:00 | Consultation ---
DATE OF CONSULTATION: February 12, 2018 CARDIOLOGY CONSULTATION REASON FOR CONSULTATION: Atrial fibrillation with rapid ventricular response. HISTORY OF PRESENT ILLNESS: This is a 72-year-old woman with a history of hyperlipidemia, hypothyroidism, bipolar disorder, and schizoaffective disorder, as well as paroxysmal atrial fibrillation, who was admitted for management of an esophageal stricture. She underwent exploratory laparotomy and right thoracotomy with esophagogastrectomy with thoracoabdominal esophagogastrostomy and pyloroplasty on February 10, 2018. She was subsequently admitted to the ICU for continued care. She currently is intubated and sedated. No history could be obtained from the patient. This morning she went into AFib with rapid ventricular response for which cardiology was consulted. REVIEW OF SYSTEMS: Unable to obtain secondary intubation and sedation. PAST MEDICAL HISTORY: Hypothyroidism, hyperlipidemia, paroxysmal atrial fibrillation, bipolar disorder and schizoaffective disorder, history of esophageal stricture and prior PEG placement. PAST SURGICAL HISTORY: Prior PEG placement and removal, esophageal dilation, bilateral hip replacement, right knee replacement surgery. SOCIAL HISTORY: Unable to obtain secondary to intubation and sedation. Documented to be negative for tobacco and alcohol. FAMILY HISTORY: Noncontributory. ALLERGIES: PLEASE SEE EMR. MEDICATIONS: Please see medication list. PHYSICAL EXAMINATION VITALS: Temperature 99.3 degrees, pulse 170, respiratory rate 20, blood pressure 109/52, oxygen saturation 100% on mechanical ventilation. GENERAL: Intubated and sedated. Well-developed, well-nourished and in no acute distress. HEENT: Normocephalic and atraumatic. Intubated. NECK: Supple. No thyromegaly or cervical lymphadenopathy. No carotid bruits. LUNGS: Clear to auscultation bilaterally. No wheezes or crackles. CARDIOVASCULAR: Normal rate and regular rhythm. No murmur. Normal S1 and S2. ABDOMEN: Soft. Dressing is noted. EXTREMITIES: No edema. NEURO: Unable to assess secondary to sedation. LABS: WBC 14.25, hemoglobin 8.1, hematocrit 24.4, and platelets 195,000. Sodium 140, potassium 3, chloride 113, CO2 22, BUN 8, creatinine 0.62. Chest x-ray with trace right apical pneumothorax. EKG with atrial fibrillation with rapid ventricular response. IMPRESSION 1. Paroxysmal atrial fibrillation with rapid ventricular response: Now converted back to normal sinus rhythm. 2. Esophageal stricture: Status post exploratory laparotomy, right thoracotomy, esophagogastrectomy with thoracoabdominal esophagogastrostomy and pyloroplasty. 3. Hypothyroidism. 4. Hyperlipidemia. 5. History of bipolar disorder and schizoaffective disorder. RECOMMENDATIONS: Start metoprolol for rate control. Anticoagulation is indicated for the patient's atrial fibrillation. However, given recent surgery will hold off until okay with surgery. Echocardiogram was performed in July of last year with normal LV systolic function with EF between 55% and 60%, mild concentric LVH. Continue to monitor on telemetry. Thank you for this consult. We will continue to follow. Job#: [id number] TOSHA
--- NOTE | 2018-02-12 14:18 | Diagnostic Imaging Report ---
PROCEDURE: A single AP view of the chest. COMPARISON: Chest radiograph 02/12/2018 INDICATIONS: PNEUMOTHORAX FINDINGS: See impression. IMPRESSION: 1. Lines: * ET tube projects 1.4 cm above the uche. * Right IJ central line tip projects over the cavoatrial junction. * NG/OG tube sidehole projects slightly below the expected GE junction, tip extends out of the field of view. * Right chest tube in place. 2. Decreased trace right pneumothorax. Air gap currently approximately 0.6 cm. 3. Persistent subcutaneous emphysema along the right chest wall and multiple right rib fractures. 4. Unchanged cardiomediastinal silhouette. Dictated by: Sridhar Lee M.D. on 02/12/2018 at 14:18 Electronically approved by: Sridhar Lee M.D. on 02/12/2018 at 14:18
[2018-02-12] MEDS: METOPROLOL TARTRATE 25 MG TAB PO SCH (17:00)
[2018-02-12 17:51] LABS: HEMATOCRIT 24.6 % (34.2-44.1); HEMOGLOBIN 8.1 g/dL (12.0-16.0)
[2018-02-12] MEDS: PANTOPRAZOLE 40 MG 10ML VIAL IV SCH (18:12)
[2018-02-12] MEDS ORDERED: FUROSEMIDE INJ 10 MG/ML 2 ML VIAL IV PRN (18:15)
[2018-02-12] MEDS ORDERED: SODIUM CHLORIDE 0.9% 250ML 250 ML IV ONE (18:15)
[2018-02-12] MEDS: METOPROLOL TARTRATE INJ 1 MG/ML VIAL IV PRN (18:31)
[2018-02-12] MEDS ORDERED: POTASSIUM CHLORIDE 20MEQ/100ML 200 ML IV ONE (19:00)
[2018-02-12] MEDS: MIDAZOLAM HCL 25 MG in SODIUM CHLORIDE 0.9% 45 ML IV PRN (23:00)
[2018-02-12] MEDS ORDERED: POTASSIUM CHLORIDE 20MEQ/100ML 200 ML ONE (23:12)
[2018-02-13] VITALS (58 sets, daily range): BP systolic 59–134; BP diastolic 27–94
[2018-02-13] MEDS: HYDROMORPHONE 1MG/1ML INJ IV PRN ×2 (01:00→05:55)
[2018-02-13] MEDS: METRONIDAZOLE 500MG/NS 100ML 100 ML IV SCH ×4 (01:09→17:39)
[2018-02-13] MEDS: POTASSIUM CHLORIDE 20MEQ/100ML 100 ML IV PRN ×2 (02:42→04:43)
[2018-02-13] MEDS: MIDAZOLAM HCL 25 MG in SODIUM CHLORIDE 0.9% 45 ML IV PRN ×2 (02:43→05:56)
[2018-02-13] MEDS: SODIUM CHLORIDE 0.9% 250ML IRRIG IR SCH ×6 (04:45→22:09)
[2018-02-13 05:19] LABS: BASOPHILS % 0.3 % (0.0-1.0); EOSINOPHILS # (AUTO) 0.3 (0.0-0.4); EOSINOPHILS % 2.1 % (0.0-6.0); HEMATOCRIT 29.9 % (34.2-44.1); HEMOGLOBIN 10.4 g/dL (12.0-16.0); LYMPHOCYTES # (AUTO) 2.2 (1.0-3.2); LYMPHOCYTES % 14.7 % (18.0-39.1); MEAN CORPUSCULAR HEMOGLOBIN 29.8 pg (28-32); MEAN CORPUSCULAR HGB CONC 34.8 g/dL (31-35); MEAN CORPUSCULAR VOLUME 85.7 fL (81-99); MONOCYTES # (AUTO) 0.7 (0.2-0.8); MONOCYTES % 4.8 % (4.4-11.3); NEUTROPHILS # (AUTO) 11.6 (2.1-6.9); NEUTROPHILS % 77.4 % (38.7-80.0); PLATELET COUNT 175 x10e3/uL (140-360); RED BLOOD COUNT 3.49 x10e6/uL (3.6-5.1); RED CELL DISTRIBUTION WIDTH 15.9 % (11.7-14.4)
[2018-02-13 05:38] LABS: ALANINE AMINOTRANSFERASE 25 IU/L (0-55); ALBUMIN 1.8 g/dL (3.5-5.0); ALBUMIN/GLOBULIN RATIO 0.8 (0.8-2.0); ALKALINE PHOSPHATASE 50 IU/L (40-150); BLOOD UREA NITROGEN 7 mg/dL (7-26); BUN/CREATININE RATIO 11 (6-25); CALCIUM 7.4 mg/dL (8.4-10.2); CARBON DIOXIDE 24 mmol/L (22-29); CHLORIDE 112 mmol/L (98-107); CREATININE, SERUM 0.66 mg/dL (0.57-1.11); EST GLOMERULAR FILTRATION RATE > 60 ML/MIN (60-); GLUCOSE 114 mg/dL (74-118); SODIUM 139 mmol/L (136-145)
[2018-02-13] MEDS: DEXTROSE 5%/LACTATED RINGERS 1,000 ML IV SCH ×2 (05:54→09:54)
--- NOTE | 2018-02-13 07:48 | Diagnostic Imaging Report ---
EXAM: CHEST SINGLE (PORTABLE) 02/13/2018 at 6:22 AM INDICATION: Esophageal stricture COMPARISON: 02/12/2018 FINDINGS: Single portable AP view of the chest. There is significant rotation. Visualized bones, soft tissues and cardiomediastinal silhouette appear unchanged. IMPRESSION: 1. Lines/tubes: Right chest tube, right IJ central line, endotracheal tube and nasogastric tube are again noted. Minimal amount of subcutaneous emphysema in the right lower lateral chest wall. 2. Trace right apical pneumothorax again noted. 3. Mild pulmonary vascular congestion. Left retrocardiac opacity likely secondary to atelectasis. Signed by: Dr. Enio Daniels DO on 02/13/2018 7:44 AM
[2018-02-13] MEDS: METOPROLOL TARTRATE 25 MG TAB PO SCH ×2 (09:00→17:00)
[2018-02-13] MEDS: LEVOFLOXACIN 500MG/D5W 100ML 100 ML IV SCH (09:54)
[2018-02-13] MEDS: HALOPERIDOL LACTATE 5 MG/ML VIAL IM SCH ×2 (09:54→22:10)
[2018-02-13] MEDS ORDERED: FUROSEMIDE INJ 10 MG/ML 2 ML VIAL IV ONE (10:30)
[2018-02-13] MEDS ORDERED: HYDROMORPHONE 20MG/ NS 100ML IV PRN (10:30)
[2018-02-13] MEDS ORDERED: HYDROMORPHONE 100 ML IV PRN (12:00)
--- NOTE | 2018-02-13 14:36 | Progress Note ---
DATE: February 13, 2018 CARDIOLOGY PROGRESS NOTE SUBJECTIVE: The patient remains intubated and sedated. OBJECTIVE VITALS: Temperature 99.9 degrees, pulse 98, respiratory rate 12, blood pressure 92/60. Oxygen saturation is 99% on mechanical ventilation. GENERAL: Intubated and sedated, in no acute distress. LUNGS: Clear to auscultation bilaterally. No wheezes or crackles. CARDIOVASCULAR: Normal rate and regular rhythm. No murmur. Normal S1 and S2. ABDOMEN: Soft. EXTREMITIES: No edema. CARDIAC MEDICATION: Metoprolol 5 mg IV q.6 h. p.r.n. LABS: WBC 15.01, hemoglobin 10.4, hematocrit 29.9, and platelets 175,000. Sodium 139, potassium 4, chloride 112, CO2 24, BUN 7, creatinine 0.66. TELEMETRY: Normal sinus rhythm. IMPRESSION 1. Paroxysmal atrial fibrillation with rapid ventricular response, now converted to normal sinus rhythm. 2. Esophageal stricture, status post exploratory laparotomy, right thoracotomy, esophagogastrectomy with thoracoabdominal esophagogastrostomy and pyloroplasty. 3. Hypothyroidism. 4. Hyperlipidemia. 5. History of bipolar disorder and schizoaffective disorder. RECOMMENDATIONS: Continue IV metoprolol for rate control. Patient currently does not have any p.o. access. Therefore, metoprolol cannot be given orally. Anticoagulation is indicated for the patient's atrial fibrillation. However, given recent surgery, will hold off until bleeding risk is acceptable from a surgical standpoint. Await their decision. Echocardiogram in July 2017 demonstrated normal LV systolic function with EF between 55% and 60% and mild concentric LVH. We will monitor the patient on telemetry for recurrence of her arrhythmia. Thank you for this consult. We will continue to follow. Job#: [id number]
[2018-02-13] MEDS: PANTOPRAZOLE 40 MG 10ML VIAL IV SCH (17:36)
[2018-02-14] VITALS (84 sets, daily range): BP systolic 82–163; BP diastolic 46–108
[2018-02-14] MEDS: METRONIDAZOLE 500MG/NS 100ML 100 ML IV SCH ×2 (00:11→05:28)
[2018-02-14] MEDS: DEXTROSE 5%/LACTATED RINGERS 1,000 ML IV SCH ×4 (00:30→18:30)
[2018-02-14 05:13] LABS: HEMATOCRIT 24.9 % (34.2-44.1); HEMOGLOBIN 8.4 g/dL (12.0-16.0); MEAN CORPUSCULAR HEMOGLOBIN 30.2 pg (28-32); MEAN CORPUSCULAR HGB CONC 33.7 g/dL (31-35); PLATELET COUNT 121 x10e3/uL (140-360); RED BLOOD COUNT 2.78 x10e6/uL (3.6-5.1); RED CELL DISTRIBUTION WIDTH 16.2 % (11.7-14.4)
[2018-02-14 05:23] LABS: MEAN CORPUSCULAR VOLUME 89.6 fL (81-99)
[2018-02-14] MEDS: SODIUM CHLORIDE 0.9% 250ML IRRIG IR SCH ×5 (05:27→20:45)
[2018-02-14 05:34] LABS: ALANINE AMINOTRANSFERASE 17 IU/L (0-55); ALBUMIN 1.3 g/dL (3.5-5.0); ALBUMIN/GLOBULIN RATIO 0.7 (0.8-2.0); ALKALINE PHOSPHATASE 37 IU/L (40-150); BLOOD UREA NITROGEN 6 mg/dL (7-26); BUN/CREATININE RATIO 9 (6-25); CREATININE, SERUM 0.64 mg/dL (0.57-1.11); EST GLOMERULAR FILTRATION RATE > 60 ML/MIN (60-); GLUCOSE 266 mg/dL (74-118)
--- NOTE | 2018-02-14 06:13 | Diagnostic Imaging Report ---
EXAM: CHEST SINGLE (PORTABLE), AP 1 view INDICATION: Intubated, chest tube COMPARISON: AP view of the chest February 13, 2018 FINDINGS: LINES/TUBES: Stable position of endotracheal tube, nasal/orogastric tube, right internal jugular vein central line and right chest tube. LUNGS: Increasing bibasilar atelectasis. PLEURA: Trace right pneumothorax HEART AND MEDIASTINUM: Stable appearance. BONES AND SOFT TISSUES: Increasing right chest wall subcutaneous emphysema. IMPRESSION: 1. Increasing right chest wall subcutaneous emphysema 2. Trace right pneumothorax. 3. Increasing bibasilar atelectasis. Signed by: Dr. Tessie Andujar M.D. on 02/14/2018 6:09 AM
[2018-02-14 06:29] LABS: CARBON DIOXIDE 24 mmol/L (22-29); CHLORIDE 110 mmol/L (98-107); SODIUM 138 mmol/L (136-145)
[2018-02-14] MEDS: METOPROLOL TARTRATE 25 MG TAB PO SCH ×2 (09:00→17:00)
[2018-02-14] MEDS: HALOPERIDOL LACTATE 5 MG/ML VIAL IM SCH ×2 (09:00→23:00)
[2018-02-14] MEDS: LEVOFLOXACIN 500MG/D5W 100ML 100 ML IV SCH (10:27)
[2018-02-14] MEDS: POTASSIUM CHLORIDE 20MEQ/100ML 100 ML IV PRN (11:16)
[2018-02-14] MEDS ORDERED: POTASSIUM CHLORIDE 20MEQ/100ML 100 ML ONE ×2 (11:20→15:02)
[2018-02-14] MEDS ORDERED: ACETAMINOPHEN 1000 MG/100 ML 100 ML IV ONE (11:46)
[2018-02-14] MEDS: CLINDAMYCIN 600MG/D5W 50ML 50 ML IV SCH ×2 (13:45→22:15)
[2018-02-14] MEDS: AZTREONAM 1 GM/NS 50 ML 50 ML IV SCH ×2 (14:20→22:55)
[2018-02-14] MEDS ORDERED: ACETAMINOPHEN 1000 MG/100 ML IV PRN (15:00)
[2018-02-14] MEDS ORDERED: POTASSIUM CHLORIDE 20MEQ/100ML 100 ML IV ONE (15:00)
[2018-02-14] MEDS ORDERED: MAGNESIUM SULFATE 2GM/50ML 50 ML IV ONE ×2 (15:00→15:02)
--- NOTE | 2018-02-14 16:23 | Progress Note ---
DATE: February 14, 2018 CARDIOLOGY PROGRESS NOTE SUBJECTIVE: Patient remains intubated and sedated. OBJECTIVE VITAL SIGNS: Temperature 102.3 degrees, pulse 122, respiratory rate 14, blood pressure 122/63, and oxygen saturation 92% on mechanical ventilation. GENERAL: Intubated and sedated, in no acute distress. LUNGS: Clear to auscultation bilaterally. No wheezes or crackles. CARDIOVASCULAR: Normal rate. Regular rhythm. No murmur. Normal S1 and S2. ABDOMEN: Soft. EXTREMITIES: No edema. CARDIAC MEDICATIONS: Metoprolol tartrate 5 mg IV q. 6h. p.r.n. LABS: WBC 10.8, hemoglobin 8.4, hematocrit 24.9, and platelets 121. Sodium 138, potassium 3, chloride 110, CO2 24, BUN 16, creatinine 0.64, and magnesium 1. IMAGING: Chest x-ray showed increasing right chest wall subcutaneous emphysema, trace right pneumothorax, and increasing bibasilar atelectasis. TELEMETRY: Normal sinus rhythm. IMPRESSION 1. Paroxysmal atrial fibrillation with rapid ventricular response, now converted to normal sinus rhythm. 2. Esophageal stricture, status post exploratory laparotomy and right thoracectomy, esophagogastrectomy with thoracoabdominal esophagogastrostomy and pyloroplasty. 3. Fever and leukocytosis. 4. Hypothyroidism. 5. Hyperlipidemia. 6. History of bipolar disorder and schizoaffective disorder. RECOMMENDATIONS: Patient does not currently have p.o. access due to her recent surgery. Continue IV metoprolol for rate control. Anticoagulation is indicated for the patient's atrial fibrillation; however, given her recent surgery, we will hold off until bleeding risk is acceptable from a surgical standpoint, await their decision. Echocardiogram from July 2017 demonstrated normal LV systolic function with EF between 55 and 60% and mild concentric LVH. Monitor patient on telemetry for recurrent severe arrhythmia, evaluation of leukocytosis, and fever per primary service. Thank you for this consult. We will continue to follow. Job#: [id number] HAILE
[2018-02-14] MEDS: PANTOPRAZOLE 40 MG 10ML VIAL IV SCH (18:35)
[2018-02-14] MEDS: HYDROMORPHONE 100 ML IV PRN (19:15)
[2018-02-15] VITALS (92 sets, daily range): BP systolic 78–149; BP diastolic 42–108
[2018-02-15] MEDS: SODIUM CHLORIDE 0.9% 250ML IRRIG IR SCH ×6 (00:50→20:45)
[2018-02-15] MEDS: HYDROMORPHONE 100 ML IV PRN (01:37)
[2018-02-15] MEDS: DEXTROSE 5%/LACTATED RINGERS 1,000 ML IV SCH ×4 (04:00→20:45)
[2018-02-15] MEDS: AZTREONAM 1 GM/NS 50 ML 50 ML IV SCH ×3 (05:00→21:30)
[2018-02-15] MEDS: CLINDAMYCIN 600MG/D5W 50ML 50 ML IV SCH ×3 (05:45→22:15)
[2018-02-15 06:16] LABS: BASOPHILS % 0.3 % (0.0-1.0); EOSINOPHILS # (AUTO) 0.4 (0.0-0.4); EOSINOPHILS % 2.5 % (0.0-6.0); HEMATOCRIT 29.2 % (34.2-44.1); LYMPHOCYTES % 12.8 % (18.0-39.1); MEAN CORPUSCULAR HEMOGLOBIN 30.2 pg (28-32); MEAN CORPUSCULAR HGB CONC 34.2 g/dL (31-35); MEAN CORPUSCULAR VOLUME 88.2 fL (81-99); MONOCYTES # (AUTO) 0.8 (0.2-0.8); MONOCYTES % 4.9 % (4.4-11.3); NEUTROPHILS # (AUTO) 12.2 (2.1-6.9); NEUTROPHILS % 78.8 % (38.7-80.0); PLATELET COUNT 139 x10e3/uL (140-360); RED BLOOD COUNT 3.31 x10e6/uL (3.6-5.1); RED CELL DISTRIBUTION WIDTH 15.7 % (11.7-14.4)
[2018-02-15 06:37] LABS: ANION GAP 8.6 mmol/L (8-16); BLOOD UREA NITROGEN 6 mg/dL (7-26); BUN/CREATININE RATIO 11 (6-25); CALCIUM 7.1 mg/dL (8.4-10.2); CARBON DIOXIDE 24 mmol/L (22-29); CHLORIDE 108 mmol/L (98-107); CREATININE, SERUM 0.53 mg/dL (0.57-1.11); EST GLOMERULAR FILTRATION RATE > 60 ML/MIN (60-); GLUCOSE 103 mg/dL (74-118); POTASSIUM 3.6 mmol/L (3.5-5.1); SODIUM 137 mmol/L (136-145)
--- NOTE | 2018-02-15 06:40 | Diagnostic Imaging Report ---
EXAM: CHEST SINGLE (PORTABLE), AP 1 view INDICATION: Esophageal stricture COMPARISON: AP view of the chest February 14, 2018 FINDINGS: LINES/TUBES: Stable position of endotracheal tube, nasal/orogastric tube, right internal jugular vein central line and right chest tube. LUNGS: Bibasilar atelectasis. PLEURA: Right pleural effusion. No evidence of a pneumothorax. HEART AND MEDIASTINUM: Stable appearance. BONES AND SOFT TISSUES: Extensive right chest wall subcutaneous emphysema. IMPRESSION: No pneumothorax seen on today's exam. Extensive right chest wall subcutaneous emphysema. Signed by: Dr. Tessie Andujar M.D. on 02/15/2018 6:36 AM
[2018-02-15] MEDS: METOPROLOL TARTRATE 25 MG TAB PO SCH ×2 (09:00→17:00)
[2018-02-15] MEDS: HALOPERIDOL LACTATE 5 MG/ML VIAL IM SCH ×2 (09:00→20:45)
[2018-02-15 10:10] LABS: ABG PH 7.44 (7.31-7.41)
[2018-02-15 10:11] LABS: ABG HCO3 24 mmol/L (23-28); ABG PCO2 35 mmHg (41-51); ABG PO2 84 mmHg (80-105)
[2018-02-15] MEDS: LEVOFLOXACIN 500MG/D5W 100ML 100 ML IV SCH (11:20)
[2018-02-15] MEDS ORDERED: MAGNESIUM SULFATE 2GM/50ML 50 ML IV SCH (12:00)
[2018-02-15] MEDS ORDERED: MAGNESIUM SULFATE 2GM/50ML 50 ML IV ONE (12:14)
[2018-02-15] MEDS ORDERED: POTASSIUM PHOSPHATE 20 MM in SODIUM CHLORIDE 0.9% 250ML 250 ML IV SCH (12:15)
--- NOTE | 2018-02-15 13:31 | Progress Note ---
DATE: February 15, 2018 CARDIOLOGY PROGRESS NOTE SUBJECTIVE: Patient remains intubated. She failed her spontaneous breathing trial. She is currently sedated but does awaken to stimuli. When asked, she does indicate she has chest pain and shortness of breath. OBJECTIVE VITAL SIGNS: Temperature 100.4 degrees, pulse 99, respiratory rate 12, blood pressure 92/51, oxygen saturation 100% on mechanical ventilation. GENERAL: Intubated and sedated, in no acute distress. LUNGS: Clear to auscultation bilaterally. No wheezes or crackles. CARDIOVASCULAR: Tachycardic but regular, no murmur. Normal S1 and S2. ABDOMEN: Soft. EXTREMITIES: No edema. CARDIAC MEDICATIONS: Metoprolol tartrate 5 mg IV q.6 h. p.r.n. LABS: WBC 15.51, hemoglobin 10, hematocrit 29.2, platelets 139. Sodium 137, potassium 3.6, chloride 108, CO2 24, BUN 6, creatinine 0.53. TELEMETRY: Sinus tachycardia. IMPRESSION 1. Paroxysmal atrial fibrillation with rapid ventricular response, now converted to normal sinus rhythm. 2. Esophageal stricture, status post exploratory laparotomy and right thoracotomy, esophagogastrectomy with thoracoabdominal esophagogastrostomy and pyloroplasty. 3. Fever and leukocytosis. 4. Hypothyroidism. 5. Hyperlipidemia. 6. History of bipolar disorder and schizoaffective disorder. RECOMMENDATIONS: Patient does not currently have p.o. access due to her recent surgery. Continue IV metoprolol as needed for rate control. Anticoagulation is indicated for the patient's atrial fibrillation. However, given her recent surgery, hold off until bleeding risk is acceptable from a surgical standpoint. We await their decision. Echocardiogram from July of 2017 demonstrated normal LV systolic function with EF between 55% and 60%. and mild concentric LVH. Monitor the patient on telemetry for recurrence of arrhythmia. Evaluation of leukocytosis and fever per primary service. Thank you for this consult. We will continue to follow. Job#: [id number] EV
[2018-02-15] MEDS: PANTOPRAZOLE 40 MG 10ML VIAL IV SCH (17:25)
[2018-02-15] MEDS ORDERED: CENTRAL TPN FORMULA 1 BAG IV SCH (20:00)
[2018-02-15] MEDS ORDERED: ACETAMINOPHEN 325 MG SUPP PR PRN (22:00)
[2018-02-16] VITALS (86 sets, daily range): BP systolic 80–160; BP diastolic 42–96
[2018-02-16] MEDS: SODIUM CHLORIDE 0.9% 250ML IRRIG IR SCH ×6 (00:06→21:10)
[2018-02-16] MEDS: AZTREONAM 1 GM/NS 50 ML 50 ML IV SCH ×3 (05:15→21:30)
[2018-02-16] MEDS: CLINDAMYCIN 600MG/D5W 50ML 50 ML IV SCH ×3 (06:00→22:15)
--- NOTE | 2018-02-16 06:18 | Diagnostic Imaging Report ---
EXAM: CHEST SINGLE (PORTABLE), AP 1 view INDICATION: Intubated COMPARISON: AP view of the chest February 15, 2018 FINDINGS: LINES/TUBES: Stable endotracheal tube, right internal jugular vein central line, nasogastric tube and right chest tube LUNGS: Bibasilar atelectasis PLEURA: No effusions or pneumothorax. HEART AND MEDIASTINUM: Stable appearance BONES AND SOFT TISSUES: Right chest wall subcutaneous emphysema. IMPRESSION: No interval change Signed by: Dr. Tessie Andujar M.D. on 02/16/2018 6:14 AM
[2018-02-16 08:21] LABS: MAGNESIUM 1.5 MG/DL (1.3-2.1); PHOSPHORUS 3.1 MG/DL (2.3-4.7)
[2018-02-16] MEDS: HALOPERIDOL LACTATE 5 MG/ML VIAL IM SCH ×2 (09:00→21:15)
[2018-02-16] MEDS: METOPROLOL TARTRATE 25 MG TAB PO SCH ×2 (09:00→11:00)
[2018-02-16] MEDS: DEXTROSE 5%/LACTATED RINGERS 1,000 ML IV SCH ×2 (09:45→16:43)
[2018-02-16] MEDS: LEVOFLOXACIN 500MG/D5W 100ML 100 ML IV SCH (10:00)
[2018-02-16] MEDS ORDERED: FUROSEMIDE INJ 10 MG/ML 4 ML VIAL IV SCH (10:30)
[2018-02-16] MEDS ORDERED: DEXMEDETOMIDINE HCL 200 MCG in SODIUM CHLORIDE 0.9% 50ML 48 ML IV PRN (10:30)
[2018-02-16] MEDS: METOPROLOL TARTRATE INJ 1 MG/ML VIAL IV PRN (12:17)
--- NOTE | 2018-02-16 13:26 | Progress Note ---
DATE: February 16, 2018 CARDIOLOGY PROGRESS NOTE SUBJECTIVE: The patient is intubated and sedated on Precedex. She was placed on a spontaneous breathing trial this morning, but only lasted 30 minutes before she became tachycardic, and had to be placed back on ventilatory support. She is awake and follows commands. OBJECTIVE VITALS: Temperature 100.1 degrees, pulse 162, respiratory rate 12, blood pressure 138/71, and oxygen saturation 100% on mechanical ventilation. GENERAL: Intubated, awake and following commands. LUNGS: Clear to auscultation bilaterally. No wheezes or crackles. CARDIOVASCULAR: Irregularly irregular tachycardic. No murmur. Normal S1 and S2. ABDOMEN: Soft. EXTREMITIES: No edema. CARDIAC MEDICATIONS 1. Metoprolol tartrate 5 mg IV q.6 h. 2. Metoprolol tartrate 25 mg p.o. b.i.d. LABS: None today. Telemetry is atrial fibrillation with rapid ventricular response. IMPRESSION 1. Paroxysmal atrial fibrillation with rapid ventricular response. 2. Esophageal stricture: Status post exploratory laparotomy, right thoracotomy, esophagogastrectomy with thoracoabdominal esophagogastrostomy and pyloroplasty. 3. Fever and leukocytosis. 4. Hypothyroidism. 5. Hyperlipidemia. 6. History of bipolar disorder and schizoaffective disorder. RECOMMENDATIONS: We will start scheduled intravenous metoprolol for rate control. Continue p.r.n. as necessary. Anticoagulation is indicated for the patient's atrial fibrillation. However, given her recent surgery, hold off until bleeding risk is acceptable from a surgical standpoint. We await their decision. Echocardiogram from July 2017 demonstrated normal LV systolic function with EF between 55% and 60%, and mild concentric LVH. Will continue monitoring the patient on telemetry. Evaluation of fever and leukocytosis per primary service. Thank you for this consult. We will continue to follow. Job#: [id number] TOSHA
[2018-02-16] MEDS: HYDROMORPHONE 100 ML IV PRN (13:30)
[2018-02-16] MEDS ORDERED: DEXTROSE 50% SYRINGE 50 ML IV PRN (14:30)
[2018-02-16] MEDS: ENOXAPARIN SOD INJ 60 MG/0.6 ML SYR SC SCH (17:13)
[2018-02-16] MEDS: PANTOPRAZOLE 40 MG 10ML VIAL IV SCH (17:13)
[2018-02-16] MEDS: METOPROLOL TARTRATE INJ 1 MG/ML VIAL IV SCH (18:00)
[2018-02-16] MEDS: CENTRAL TPN FORMULA 1 BAG IV SCH (21:10)
[2018-02-16] MEDS: ONDANSETRON HCL INJ 2 MG/ML VIAL IV PRN (21:12)
[2018-02-16] MEDS: DEXMEDETOMIDINE HCL 200 MCG in SODIUM CHLORIDE 0.9% 50ML 48 ML IV PRN (22:00)
[2018-02-17] VITALS (47 sets, daily range): BP systolic 74–140; BP diastolic 36–78
[2018-02-17] MEDS: SODIUM CHLORIDE 0.9% 250ML IRRIG IR SCH ×6 (00:45→21:15)
[2018-02-17] MEDS: DEXTROSE 5%/LACTATED RINGERS 1,000 ML IV SCH ×3 (01:30→17:18)
[2018-02-17] MEDS: DEXMEDETOMIDINE HCL 200 MCG in SODIUM CHLORIDE 0.9% 50ML 48 ML IV PRN (02:00)
[2018-02-17] MEDS: AZTREONAM 1 GM/NS 50 ML 50 ML IV SCH ×3 (05:05→22:15)
[2018-02-17] MEDS: CLINDAMYCIN 600MG/D5W 50ML 50 ML IV SCH ×3 (05:55→21:15)
[2018-02-17] MEDS: METOPROLOL TARTRATE INJ 1 MG/ML VIAL IV SCH ×5 (05:57→23:45)
--- NOTE | 2018-02-17 06:18 | Diagnostic Imaging Report ---
EXAM: CHEST SINGLE (PORTABLE), AP 1 view INDICATION: Intubated COMPARISON: AP view of the chest February 16, 2018 FINDINGS: LINES/TUBES: Stable endotracheal tube, nasal/orogastric tube and right chest tube LUNGS: Bibasilar atelectasis PLEURA: No effusions or pneumothorax. HEART AND MEDIASTINUM: Stable appearance BONES AND SOFT TISSUES: Right chest wall subcutaneous emphysema. Displaced right rib fractures. IMPRESSION: No interval change Signed by: Dr. Tessie Andujar M.D. on 02/17/2018 6:15 AM
[2018-02-17 06:35] LABS: BASOPHILS % 0.2 % (0.0-1.0); EOSINOPHILS # (AUTO) 0.3 (0.0-0.4); HEMATOCRIT 24.4 % (34.2-44.1); LYMPHOCYTES # (AUTO) 1.7 (1.0-3.2); LYMPHOCYTES % 26.1 % (18.0-39.1); MEAN CORPUSCULAR HGB CONC 32.8 g/dL (31-35); MEAN CORPUSCULAR VOLUME 91.4 fL (81-99); MONOCYTES # (AUTO) 0.4 (0.2-0.8); MONOCYTES % 6.8 % (4.4-11.3); NEUTROPHILS % 62.3 % (38.7-80.0); PLATELET COUNT 151 x10e3/uL (140-360); RED BLOOD COUNT 2.67 x10e6/uL (3.6-5.1); RED CELL DISTRIBUTION WIDTH 15.3 % (11.7-14.4)
[2018-02-17 06:49] LABS: INR 1.31; PROTHROMBIN TIME 15.3 seconds (11.9-14.5)
[2018-02-17 06:50] LABS: PARTIAL THROMBOPLASTIN TIME 37.8 seconds (23.8-35.5)
[2018-02-17 07:16] LABS: ALANINE AMINOTRANSFERASE 13 IU/L (0-55); ALBUMIN 1.3 g/dL (3.5-5.0); ALBUMIN/GLOBULIN RATIO 0.5 (0.8-2.0); ALKALINE PHOSPHATASE 51 IU/L (40-150); BLOOD UREA NITROGEN 8 mg/dL (7-26); BUN/CREATININE RATIO 16 (6-25); CALCIUM 7.2 mg/dL (8.4-10.2); CARBON DIOXIDE 29 mmol/L (22-29); CHLORIDE 106 mmol/L (98-107); CREATININE, SERUM 0.51 mg/dL (0.57-1.11); EST GLOMERULAR FILTRATION RATE > 60 ML/MIN (60-); GLUCOSE 148 mg/dL (74-118); MAGNESIUM 1.7 MG/DL (1.3-2.1); SODIUM 137 mmol/L (136-145); TRIGLYCERIDES 76 MG/DL (0-149)
[2018-02-17] MEDS: METOPROLOL TARTRATE 25 MG TAB PO SCH ×2 (09:00→17:00)
[2018-02-17] MEDS ORDERED: FUROSEMIDE INJ 10 MG/ML 4 ML VIAL IV ONE (09:30)
[2018-02-17 09:57] LABS: ABG HCO3 26 mmol/L (23-28); ABG PCO2 39 mmHg (41-51); ABG PH 7.44 (7.31-7.41); ABG PO2 99 mmHg (80-105)
[2018-02-17] MEDS: HALOPERIDOL LACTATE 5 MG/ML VIAL IM SCH ×2 (10:15→21:15)
[2018-02-17] MEDS: LEVOFLOXACIN 500MG/D5W 100ML 100 ML IV SCH (10:15)
[2018-02-17] MEDS ORDERED: POTASSIUM CHLORIDE 20MEQ/100ML 200 ML IV ONE (10:30)
[2018-02-17] MEDS: PANTOPRAZOLE 40 MG 10ML VIAL IV SCH (17:43)
[2018-02-17] MEDS: ENOXAPARIN SOD INJ 60 MG/0.6 ML SYR SC SCH (17:43)
[2018-02-17] MEDS: CENTRAL TPN FORMULA 1 BAG IV SCH (21:15)
--- NOTE | 2018-02-17 23:29 | Progress Note ---
DATE: February 17, 2018 CARDIOLOGY PROGRESS NOTE SUBJECTIVE: Patient was extubated today. She is, however, complaining of chest pain. OBJECTIVE: VITAL SIGNS: Temperature 98 degrees, pulse 88, respiratory rate 20, blood pressure 112/58, oxygen saturation 99% on 4 liters nasal cannula. GENERAL: Awake, alert, in no acute distress. LUNGS: Clear to auscultation bilaterally. No wheezes or crackles. CARDIOVASCULAR: Normal rate, regular rhythm. No murmur. Normal S1, S2. ABDOMEN: Soft. EXTREMITIES: No edema. CARDIAC MEDICATIONS: 1. Enoxaparin 60 mg subcutaneously daily. 2. Metoprolol tartrate 5 mg IV q.6h. 3. Metoprolol tartrate 25 mg p.o. b.i.d. LABS: WBC 6.47, hemoglobin 8, hematocrit 24.4, platelets 151,000. Sodium 137, potassium 3, chloride 106, CO2 29, BUN 8, creatinine 0.51. TELEMETRY: Normal sinus rhythm. IMPRESSION: 1. Paroxysmal atrial fibrillation with rapid ventricular response, currently sinus rhythm. 2. Esophageal stricture, status post exploratory laparotomy, right thoracotomy, esophagogastrectomy with thoracoabdominal esophagogastrostomy and pyloroplasty. 3. Hypothyroidism. 4. Hyperlipidemia. 5. History of bipolar disorder and schizoaffective disorder. RECOMMENDATIONS: Continue current cardiac medications. Anticoagulation is indicated for the patient's atrial fibrillation, however, given her recent surgery we will hold until bleeding risk is acceptable from a surgical standpoint. Patient has been started on Lovenox 60 mg subcutaneously daily. We will discuss when anticoagulation may be increased for therapeutic anticoagulation. Patient's previous echocardiogram from July of 2017 demonstrated normal LV systolic function with EF between 55% and 60% with mild concentric LVH. We will continue monitoring the patient on telemetry. Thank you for this consult. We will continue to follow. Job#: [id number]
[2018-02-18] VITALS (33 sets, daily range): BP systolic 100–140; BP diastolic 54–80
[2018-02-18] MEDS: DEXTROSE 5%/LACTATED RINGERS 1,000 ML IV SCH ×3 (01:15→20:15)
[2018-02-18] MEDS: SODIUM CHLORIDE 0.9% 250ML IRRIG IR SCH ×6 (01:15→20:45)
[2018-02-18] MEDS: DEXMEDETOMIDINE HCL 200 MCG in SODIUM CHLORIDE 0.9% 50ML 48 ML IV PRN (05:15)
[2018-02-18] MEDS: AZTREONAM 1 GM/NS 50 ML 50 ML IV SCH ×3 (05:30→21:45)
[2018-02-18] MEDS: METOPROLOL TARTRATE INJ 1 MG/ML VIAL IV SCH ×3 (06:30→18:00)
[2018-02-18] MEDS: CLINDAMYCIN 600MG/D5W 50ML 50 ML IV SCH ×3 (06:30→22:25)
[2018-02-18 07:07] LABS: ANION GAP 6.3 mmol/L (8-16); BLOOD UREA NITROGEN 8 mg/dL (7-26); BUN/CREATININE RATIO 17 (6-25); CALCIUM 7.2 mg/dL (8.4-10.2); CARBON DIOXIDE 30 mmol/L (22-29); CHLORIDE 104 mmol/L (98-107); CREATININE, SERUM 0.48 mg/dL (0.57-1.11); EST GLOMERULAR FILTRATION RATE > 60 ML/MIN (60-); GLUCOSE 118 mg/dL (74-118); POTASSIUM 3.3 mmol/L (3.5-5.1); SODIUM 137 mmol/L (136-145)
[2018-02-18 07:15] LABS: BASOPHILS % 0.2 % (0.0-1.0); EOSINOPHILS # (AUTO) 0.3 (0.0-0.4); EOSINOPHILS % 3.2 % (0.0-6.0); HEMATOCRIT 24.8 % (34.2-44.1); HEMOGLOBIN 8.5 g/dL (12.0-16.0); LYMPHOCYTES # (AUTO) 1.9 (1.0-3.2); LYMPHOCYTES % 22.7 % (18.0-39.1); MEAN CORPUSCULAR HEMOGLOBIN 30.7 pg (28-32); MEAN CORPUSCULAR HGB CONC 34.3 g/dL (31-35); MEAN CORPUSCULAR VOLUME 89.5 fL (81-99); MONOCYTES # (AUTO) 0.7 (0.2-0.8); MONOCYTES % 7.9 % (4.4-11.3); NEUTROPHILS # (AUTO) 5.4 (2.1-6.9); NEUTROPHILS % 65.5 % (38.7-80.0); PLATELET COUNT 173 x10e3/uL (140-360); RED BLOOD COUNT 2.77 x10e6/uL (3.6-5.1); RED CELL DISTRIBUTION WIDTH 14.6 % (11.7-14.4)
[2018-02-18] MEDS: HALOPERIDOL LACTATE 5 MG/ML VIAL IM SCH ×2 (08:44→21:45)
[2018-02-18] MEDS: METOPROLOL TARTRATE 25 MG TAB PO SCH ×2 (09:00→17:00)
[2018-02-18 09:55] LABS: ANISOCYTOSIS SLIGHT; EOSINOPHILS % (MANUAL) 9 % (0-7); HYPOCHROMASIA SLIGHT; LYMPHOCYTES % (MANUAL) 15 % (19-48); MONOCYTES % (MANUAL) 6 % (3.4-9.0); NEUTROPHILS % (MANUAL) 69 % (40-74)
[2018-02-18 09:56] LABS: PLATELET ESTIMATE ADEQUATE; PLATELET MORPHOLOGY COMMENT NORMAL; RBC MORPHOLOGY COMMENT NORMAL
[2018-02-18] MEDS ORDERED: POTASSIUM CHLORIDE 20MEQ/100ML 200 ML IV ONE (10:00)
[2018-02-18] MEDS: HYDROMORPHONE 1MG/1ML INJ IV PRN (13:59)
--- NOTE | 2018-02-18 16:29 | Progress Note ---
DATE: February 18, 2018 CARDIOLOGY PROGRESS NOTE SUBJECTIVE: The patient denies chest pain. She complains of shortness of breath. OBJECTIVE VITALS: Temperature 98.5 degrees, pulse 104, respiratory rate 16, blood pressure 140/82, oxygen saturation 100% on 2 L nasal cannula. GENERAL: Awake, alert and in no acute distress. LUNGS: Clear to auscultation bilaterally. No wheezes or crackles. CARDIOVASCULAR: Normal rate. Regular rhythm. No murmur. Normal S1 and S2. ABDOMEN: Soft. EXTREMITIES: No edema. CARDIAC MEDICATIONS 1. Metoprolol tartrate 5 mg IV q.6 h. 2. Enoxaparin 60 mg subcutaneous daily. LABS: WBC 8.21, hemoglobin 8.5, hematocrit 24.8, and platelets 173,000. Sodium 137, potassium 3.3, chloride 104, CO2 30, BUN 8, creatinine 0.48. Telemetry is normal sinus rhythm. IMPRESSION 1. Paroxysmal atrial fibrillation with rapid ventricular response, currently sinus rhythm. 2. Esophageal stricture: Status post exploratory laparotomy, right thoracotomy, esophagogastrectomy with thoracoabdominal esophagogastrostomy, and pyloroplasty. 3. Hypothyroidism. 4. Hyperlipidemia. 5. History of bipolar disorder and schizoaffective disorder. RECOMMENDATIONS: Continue current cardiac medications. Once the patient is able to tolerate solid food, change metoprolol tartrate to p.o. In the meantime, continue IV scheduled. Anticoagulation is indicated for the patient's atrial fibrillation. However, given her recent surgery, hold off until bleeding risk is acceptable from a surgical standpoint. Note that the patient is on Lovenox 60 mg subcutaneous daily. Will need to discuss with surgery when the patient's anticoagulation may be increased to therapeutic anticoagulation. The patient's previous echocardiogram demonstrated normal LV systolic function with estimated ejection fraction between 55% and 60% and mild LVH. No further cardiac evaluation is indicated at this time. Continue monitoring on telemetry. Thank you for this consult. We will continue to follow. Job#: [id number] TOSHA
[2018-02-18] MEDS: PANTOPRAZOLE 40 MG 10ML VIAL IV SCH (16:45)
[2018-02-18] MEDS: ENOXAPARIN SOD INJ 60 MG/0.6 ML SYR SC SCH (17:00)
[2018-02-18] MEDS ORDERED: CENTRAL TPN FORMULA 1 BAG IV SCH (20:00)
[2018-02-18] MEDS: ACETAMINOPHEN 1000 MG/100 ML IV PRN (21:45)
[2018-02-19] VITALS (43 sets, daily range): BP systolic 103–145; BP diastolic 44–94
[2018-02-19] MEDS: METOPROLOL TARTRATE INJ 1 MG/ML VIAL IV SCH ×5 (00:15→23:52)
[2018-02-19] MEDS: ONDANSETRON HCL INJ 2 MG/ML VIAL IV PRN (00:50)
[2018-02-19] MEDS: AZTREONAM 1 GM/NS 50 ML 50 ML IV SCH ×3 (05:15→22:27)
[2018-02-19 06:04] LABS: BASOPHILS % 0.3 % (0.0-1.0); EOSINOPHILS # (AUTO) 0.1 (0.0-0.4); EOSINOPHILS % 1.1 % (0.0-6.0); HEMATOCRIT 27.4 % (34.2-44.1); HEMOGLOBIN 9.2 g/dL (12.0-16.0); LYMPHOCYTES # (AUTO) 1.8 (1.0-3.2); LYMPHOCYTES % 15.3 % (18.0-39.1); MEAN CORPUSCULAR HEMOGLOBIN 29.8 pg (28-32); MEAN CORPUSCULAR HGB CONC 33.6 g/dL (31-35); MEAN CORPUSCULAR VOLUME 88.7 fL (81-99); MONOCYTES # (AUTO) 0.8 (0.2-0.8); NEUTROPHILS % 75.6 % (38.7-80.0); PLATELET COUNT 290 x10e3/uL (140-360); RED BLOOD COUNT 3.09 x10e6/uL (3.6-5.1); RED CELL DISTRIBUTION WIDTH 14.6 % (11.7-14.4)
[2018-02-19] MEDS: CLINDAMYCIN 600MG/D5W 50ML 50 ML IV SCH ×3 (06:15→21:42)
[2018-02-19 06:22] LABS: ANION GAP 8.6 mmol/L (8-16); BLOOD UREA NITROGEN 7 mg/dL (7-26); BUN/CREATININE RATIO 15 (6-25); CALCIUM 7.6 mg/dL (8.4-10.2); CARBON DIOXIDE 27 mmol/L (22-29); CHLORIDE 104 mmol/L (98-107); CREATININE, SERUM 0.48 mg/dL (0.57-1.11); EST GLOMERULAR FILTRATION RATE > 60 ML/MIN (60-); GLUCOSE 113 mg/dL (74-118); POTASSIUM 3.6 mmol/L (3.5-5.1); SODIUM 136 mmol/L (136-145)
[2018-02-19] MEDS: HALOPERIDOL LACTATE 5 MG/ML VIAL IM SCH ×2 (09:20→21:14)
[2018-02-19] MEDS: METOPROLOL TARTRATE 25 MG TAB PO SCH ×2 (09:20→17:40)
[2018-02-19] MEDS ORDERED: FUROSEMIDE INJ 10 MG/ML 4 ML VIAL IV ONE (09:30)
[2018-02-19] MEDS ORDERED: CENTRAL TPN FORMULA 1 BAG IV SCH (10:56)
[2018-02-19] MEDS: ENOXAPARIN SOD INJ 60 MG/0.6 ML SYR SC SCH (17:40)
[2018-02-19] MEDS: PANTOPRAZOLE 40 MG 10ML VIAL IV SCH (17:52)
--- NOTE | 2018-02-19 21:54 | Progress Note ---
DATE: February 19, 2018 CARDIOLOGY PROGRESS NOTE SUBJECTIVE: The patient denies chest pain or shortness of breath. Her appetite is poor. OBJECTIVE VITAL SIGNS: Temperature 98.8 degrees, pulse 92, respiratory rate 18, blood pressure 131/57, oxygen saturation 99% on 3 liters nasal cannula. GENERAL: An ill-appearing woman in no acute distress. LUNGS: Clear to auscultation bilaterally. No wheezes or crackles. CARDIOVASCULAR: Normal rate. Regular rhythm. No murmur. Normal S1 and S2. ABDOMEN: Soft. EXTREMITIES: No edema. CARDIAC MEDICATIONS 1. Metoprolol tartrate 25 mg p.o. b.i.d. 2. Enoxaparin 60 mg subcutaneous daily. 3. Metoprolol tartrate 5 mg IV q.6 h. p.r.n. LABS: WBC 11.84, hemoglobin 9.2, hematocrit 27.4, platelets 290,000, sodium 136, potassium 3.6, chloride 104, CO2 of 27, BUN 7, creatinine 0.48. TELEMETRY: Normal sinus rhythm. IMPRESSION 1. Paroxysmal atrial fibrillation with rapid ventricular response, currently sinus rhythm. 2. Esophageal stricture: Status post exploratory laparotomy, right thoracotomy, esophagogastrectomy with thoracoabdominal esophagogastrostomy, and pyloroplasty. 3. Hypothyroidism. 4. Hyperlipidemia. 5. History of bipolar disorder and schizoaffective disorder. RECOMMENDATIONS: Continue current cardiac medications. She has been started on p.o. metoprolol tartrate as she is now able to tolerate food. Anticoagulation is indicated for the patient's atrial fibrillation. However, given her recent surgery hold off until bleeding risk is acceptable from a surgical standpoint. The patient has been restarted on Lovenox 60 mg subcutaneous daily. However, this is not a therapeutic dose of anticoagulation. We will await surgical decision as to when the patient's anticoagulation may be increased. The patient's previous echocardiogram demonstrated normal LV systolic function with estimated EF of 55% to 60% and mild LVH. No further cardiac evaluation is indicated at this time. Continue monitoring the patient on telemetry. Thank you for this consult. We will continue to follow. Job#: [id number]
[2018-02-20] VITALS (48 sets, daily range): BP systolic 107–143; BP diastolic 47–85
[2018-02-20] MEDS: DEXTROSE 5%/LACTATED RINGERS 1,000 ML IV SCH ×2 (00:09→18:26)
[2018-02-20] MEDS: CLINDAMYCIN 600MG/D5W 50ML 50 ML IV SCH ×3 (05:45→22:30)
[2018-02-20] MEDS: METOPROLOL TARTRATE INJ 1 MG/ML VIAL IV SCH ×4 (05:46→23:54)
[2018-02-20 06:09] LABS: BASOPHILS % 0.4 % (0.0-1.0); EOSINOPHILS # (AUTO) 0.2 (0.0-0.4); HEMATOCRIT 24.5 % (34.2-44.1); HEMOGLOBIN 8.4 g/dL (12.0-16.0); LYMPHOCYTES # (AUTO) 1.8 (1.0-3.2); LYMPHOCYTES % 16.6 % (18.0-39.1); MEAN CORPUSCULAR HGB CONC 34.3 g/dL (31-35); MEAN CORPUSCULAR VOLUME 87.5 fL (81-99); MONOCYTES # (AUTO) 0.8 (0.2-0.8); MONOCYTES % 7.5 % (4.4-11.3); NEUTROPHILS # (AUTO) 8.1 (2.1-6.9); PLATELET COUNT 316 x10e3/uL (140-360); RED CELL DISTRIBUTION WIDTH 14.3 % (11.7-14.4)
[2018-02-20] MEDS: AZTREONAM 1 GM/NS 50 ML 50 ML IV SCH ×3 (06:29→22:00)
[2018-02-20 06:38] LABS: ANION GAP 8.9 mmol/L (8-16); BLOOD UREA NITROGEN 7 mg/dL (7-26); CARBON DIOXIDE 27 mmol/L (22-29); CHLORIDE 102 mmol/L (98-107); CREATININE, SERUM 0.45 mg/dL (0.57-1.11); SODIUM 135 mmol/L (136-145)
[2018-02-20 06:39] LABS: BUN/CREATININE RATIO 16 (6-25); CALCIUM 7.2 mg/dL (8.4-10.2); EST GLOMERULAR FILTRATION RATE > 60 ML/MIN (60-); GLUCOSE 125 mg/dL (74-118)
[2018-02-20 06:42] LABS: POTASSIUM 2.9 mmol/L (3.5-5.1)
[2018-02-20] MEDS: HALOPERIDOL LACTATE 5 MG/ML VIAL IM SCH ×2 (09:00→21:30)
[2018-02-20] MEDS: METOPROLOL TARTRATE 25 MG TAB PO SCH ×2 (09:00→17:00)
[2018-02-20] MEDS ORDERED: POTASSIUM CHLORIDE 20MEQ/100ML 200 ML IV ONE (09:15)
--- NOTE | 2018-02-20 12:55 | Progress Note ---
DATE: February 20, 2018 CARDIOLOGY PROGRESS NOTE SUBJECTIVE: The patient denies chest pain or shortness of breath. She remains on TPN. Her p.o. intake her poor. OBJECTIVE VITAL SIGNS: Temperature 98.3 degrees, pulse 73, respiratory rate 16, blood pressure 116/58, oxygen saturation 100% on room air. GENERAL: Ill-appearing woman, in no acute distress, awake and alert. LUNGS: Clear to auscultation bilaterally. No wheezes or crackles. CARDIOVASCULAR: Normal rate, regular rhythm. No murmur. Normal S1, S2. ABDOMEN: Soft. EXTREMITIES: No edema. CARDIAC MEDICATIONS 1. Metoprolol tartrate 25 mg p.o. b.i.d. 2. Enoxaparin 60 mg subcu daily. LABS: WBC 7.08, hemoglobin 8.4, hematocrit 24.5, platelets 316. Sodium 135, potassium 2.9, chloride 102, CO2 of 27, BUN 89, creatinine 0.45. TELEMETRY: Normal sinus rhythm. IMPRESSION 1. Paroxysmal atrial fibrillation with rapid ventricular response, currently sinus rhythm. 2. Esophageal stricture, status post exploratory laparotomy, right thoracotomy, esophagogastrectomy with thoracoabdominal esophagogastrostomy, and pyloroplasty. 3. Hypothyroidism. 4. Hyperlipidemia. 5. History of bipolar disorder and schizoaffective disorder. RECOMMENDATIONS: Continue current cardiac medications. Anticoagulation is indicated for the patient's atrial fibrillation; however, given her recent surgery, hold off until bleeding risk is acceptable from a surgical standpoint. The patient has been restarted on Lovenox; however, this is not a therapeutic dose for anticoagulation. Await surgical decision as to when patient's anticoagulation may be increased. The patient's prior echocardiogram demonstrated normal LV systolic function with an estimated LVEF of 55-60% and mild LVH. No further cardiac evaluation is indicated at this time. Continue monitoring the patient on telemetry. Thank you for this consult. We will continue to follow. Job#: [id number] GLO
[2018-02-20] MEDS: PANTOPRAZOLE 40 MG 10ML VIAL IV SCH (16:45)
[2018-02-20] MEDS: ENOXAPARIN SOD INJ 60 MG/0.6 ML SYR SC SCH (17:00)
[2018-02-20] MEDS: CENTRAL TPN FORMULA 1 BAG IV SCH (21:06)
[2018-02-20] MEDS: HYDROMORPHONE 1MG/1ML INJ IV PRN (21:40)
[2018-02-21] VITALS (35 sets, daily range): BP systolic 108–147; BP diastolic 51–75
[2018-02-21] MEDS: HYDROMORPHONE 1MG/1ML INJ IV PRN ×2 (03:27→09:27)
[2018-02-21] MEDS: CLINDAMYCIN 600MG/D5W 50ML 50 ML IV SCH (05:30)
[2018-02-21] MEDS: AZTREONAM 1 GM/NS 50 ML 50 ML IV SCH (06:07)
[2018-02-21] MEDS: METOPROLOL TARTRATE INJ 1 MG/ML VIAL IV SCH ×2 (06:20→10:50)
[2018-02-21 06:22] LABS: BASOPHILS # (AUTO) 0.1 (0.0-0.1); BASOPHILS % 0.5 % (0.0-1.0); EOSINOPHILS # (AUTO) 0.2 (0.0-0.4); EOSINOPHILS % 1.9 % (0.0-6.0); HEMATOCRIT 23.8 % (34.2-44.1); LYMPHOCYTES % 19.7 % (18.0-39.1); MEAN CORPUSCULAR HEMOGLOBIN 29.6 pg (28-32); MEAN CORPUSCULAR HGB CONC 33.6 g/dL (31-35); MEAN CORPUSCULAR VOLUME 88.1 fL (81-99); MONOCYTES # (AUTO) 0.8 (0.2-0.8); MONOCYTES % 8.4 % (4.4-11.3); NEUTROPHILS # (AUTO) 6.9 (2.1-6.9); NEUTROPHILS % 68.7 % (38.7-80.0); PLATELET COUNT 367 x10e3/uL (140-360); RED CELL DISTRIBUTION WIDTH 14.4 % (11.7-14.4)
[2018-02-21 06:46] LABS: ANION GAP 8.2 mmol/L (8-16); BLOOD UREA NITROGEN 6 mg/dL (7-26); BUN/CREATININE RATIO 13 (6-25); CALCIUM 7.2 mg/dL (8.4-10.2); CARBON DIOXIDE 26 mmol/L (22-29); CHLORIDE 104 mmol/L (98-107); CREATININE, SERUM 0.47 mg/dL (0.57-1.11); EST GLOMERULAR FILTRATION RATE > 60 ML/MIN (60-); GLUCOSE 116 mg/dL (74-118); POTASSIUM 3.2 mmol/L (3.5-5.1); SODIUM 135 mmol/L (136-145)
[2018-02-21] MEDS: HALOPERIDOL LACTATE 5 MG/ML VIAL IM SCH (08:36)
[2018-02-21] MEDS: DEXTROSE 5%/LACTATED RINGERS 1,000 ML IV SCH (08:37)
[2018-02-21] MEDS: METOPROLOL TARTRATE 25 MG TAB PO SCH ×2 (09:00→17:48)
[2018-02-21] MEDS ORDERED: POTASSIUM CHLORIDE 20MEQ/100ML 100 ML ONE (10:49)
[2018-02-21] MEDS: POTASSIUM CHLORIDE 20MEQ/100ML 100 ML IV PRN (10:49)
[2018-02-21] MEDS ORDERED: HYDROMORPHONE 1MG/1ML INJ IV PRN (12:15)
--- NOTE | 2018-02-21 14:34 | Progress Note ---
DATE: February 21, 2018 CARDIOLOGY PROGRESS NOTE SUBJECTIVE: Patient denies chest pain or shortness of breath. OBJECTIVE VITAL SIGNS: Temperature 100.2 degrees, pulse 79, respiratory rate 18, blood pressure 124/64, oxygen saturation 99% on room air. GENERAL: Ill-appearing woman in no acute distress, awake and alert. LUNGS: Clear to auscultation bilaterally. No wheeze, no crackles. CARDIOVASCULAR: Normal rate, regular rhythm. No murmur. Normal S1, S2. ABDOMEN: Soft. EXTREMITIES: No edema. CARDIAC MEDICATIONS 1. Enoxaparin 60 mg subcu daily. 2. Metoprolol tartrate 5 mg IV q.6 hours as needed. 3. Metoprolol tartrate 5 mg IV q.6 hours. 4. Metoprolol tartrate 25 mg p.o. b.i.d. TPN. LABS: WBC 9.98, hemoglobin 8, hematocrit 23.8, platelets 367. Sodium 135, potassium 3.2, chloride 104, CO2 26, BUN 6, creatinine 0.47. TELEMETRY: Normal sinus rhythm. IMPRESSION 1. Paroxysmal atrial fibrillation with rapid ventricular response currently sinus rhythm. 2. Esophageal stricture status post exploratory laparotomy, right thoracotomy, esophagogastrectomy with thoracoabdominal esophagogastrostomy and pyloroplasty. 3. Hypothyroidism. 4. Hyperlipidemia. 5. History of bipolar disorder with schizoaffective disorder. RECOMMENDATIONS: Continue current cardiac medications. Anticoagulation is indicated for the patient's atrial fibrillation. However, given her recent surgery, hold off until bleeding risk is acceptable from a surgical standpoint. The patient has been restarted on Lovenox however this is not a therapeutic dose for anticoagulation. Await surgical decision as to when this may be increased. Prior echocardiogram demonstrated normal LV systolic function with estimated LVEF of 55% to 60% and mild LVH. No further cardiac evaluation is indicated at this time. Continue monitoring patient on telemetry. Thank you for this consult. We will continue to follow. Job#: [id number] DAISY
[2018-02-21] MEDS: BENZTROPINE MESYLATE 1 MG TAB PO SCH (17:48)
[2018-02-21] MEDS: HALOPERIDOL 5 MG TAB PO SCH (17:48)
[2018-02-21] MEDS: ENOXAPARIN SOD INJ 60 MG/0.6 ML SYR SC SCH (17:48)
[2018-02-21] MEDS: PANTOPRAZOLE 40 MG 10ML VIAL IV SCH (17:48)
[2018-02-21] MEDS: CENTRAL TPN FORMULA 1 BAG IV SCH (23:49)
[2018-02-22] VITALS (8 sets, daily range): BP systolic 124–141; BP diastolic 57–76
[2018-02-22] MEDS: ACETAMINOPHEN 1000 MG/100 ML IV PRN (05:27)
[2018-02-22] MEDS: METOPROLOL TARTRATE 25 MG TAB PO SCH ×2 (09:00→16:40)
[2018-02-22] MEDS: HALOPERIDOL 5 MG TAB PO SCH ×2 (09:00→16:40)
[2018-02-22] MEDS: BENZTROPINE MESYLATE 1 MG TAB PO SCH ×2 (09:00→16:40)
[2018-02-22] MEDS: DEXTROSE 5%/LACTATED RINGERS 1,000 ML IV SCH (09:59)
[2018-02-22] MEDS: PANTOPRAZOLE 40 MG 10ML VIAL IV SCH (16:40)
[2018-02-22] MEDS: ENOXAPARIN SOD INJ 60 MG/0.6 ML SYR SC SCH (16:41)
--- NOTE | 2018-02-22 17:29 | Progress Note ---
DATE: February 22, 2018 CARDIOLOGY PROGRESS NOTE SUBJECTIVE: No new complaints. Telemetry in sinus rhythm. OBJECTIVE VITAL SIGNS: Heart rate 74, blood pressure 139/62, respiratory rate 16, O2 sat 97% on room air, temperature 96.3. GENERAL: No acute distress, alert. CHEST: Clear to auscultation. CARDIOVASCULAR: Regular rate and rhythm. Normal S1 and S2. No S3, no S4. ABDOMEN: Soft. EXTREMITIES: No edema. CARDIOVASCULAR MEDICATIONS 1. Metoprolol tartrate 25 mg b.i.d. 2. Lovenox 60 mg subcu daily. 3. Metoprolol tartrate additional 5 mg q.6 hours p.r.n. 4. Analgesics. 5. Ringer's lactate. 6. IV fluids. STUDIES: For today, glucose 116. C. diff toxins A and B are negative. Blood cultures negative x5 days. ASSESSMENT 1. Paroxysmal atrial fibrillation with rapid ventricular response, currently in sinus rhythm. 2. Esophageal stricture, status post exploratory laparotomy, right thoracotomy, esophagogastrectomy with thoracoabdominal esophagogastrostomy and pyloroplasty. 3. Hypothyroidism. 4. Hyperlipidemia. 5. History of bipolar disorder with schizoaffective disorder. RECOMMENDATIONS: Preserved left ventricular systolic function, mild LVH on prior ultrasound. Patient will benefit from long-term anticoagulation; however, given recent surgery, currently on Lovenox subtherapeutic dose. Awaiting optimal time to up-titrate, deferring decision to surgery's expertise and monitoring response. So far, tolerating it well. Continue current cardiovascular medications. Job#: [id number] VAS
[2018-02-22] MEDS ORDERED: DIPHENOXYLATE/ATROPINE TAB PO ONE (19:00)
[2018-02-22] MEDS: CENTRAL TPN FORMULA 1 BAG IV SCH (20:30)
[2018-02-23] VITALS (8 sets, daily range): BP systolic 128–164; BP diastolic 56–76
[2018-02-23] MEDS: DEXTROSE 5%/LACTATED RINGERS 1,000 ML IV SCH ×2 (06:26→12:58)
[2018-02-23 07:38] LABS: ALANINE AMINOTRANSFERASE 20 IU/L (0-55); ALBUMIN 1.5 g/dL (3.5-5.0); ALBUMIN/GLOBULIN RATIO 0.4 (0.8-2.0); ALKALINE PHOSPHATASE 65 IU/L (40-150); BLOOD UREA NITROGEN 6 mg/dL (7-26); BUN/CREATININE RATIO 12 (6-25); CALCIUM 7.3 mg/dL (8.4-10.2); CARBON DIOXIDE 25 mmol/L (22-29); CHLORIDE 104 mmol/L (98-107); EST GLOMERULAR FILTRATION RATE > 60 ML/MIN (60-); GLUCOSE 108 mg/dL (74-118); SODIUM 134 mmol/L (136-145)
[2018-02-23] MEDS: BENZTROPINE MESYLATE 1 MG TAB PO SCH ×2 (08:25→16:52)
[2018-02-23] MEDS: HALOPERIDOL 5 MG TAB PO SCH ×2 (08:25→16:52)
[2018-02-23] MEDS: METOPROLOL TARTRATE 25 MG TAB PO SCH ×2 (08:25→16:52)
[2018-02-23] MEDS: POTASSIUM CHLORIDE 20 MEQ TAB CR PO PRN ×2 (11:44→16:53)
[2018-02-23] MEDS: LOPERAMIDE HCL 2 MG CAP PO PRN (14:34)
--- NOTE | 2018-02-23 14:51 | Progress Note ---
DATE: February 23, 2018 CARDIOLOGY PROGRESS NOTE SUBJECTIVE: No acute distress. Denies shortness of breath or chest pain today. OBJECTIVE VITALS: Temperature 97.9, heart rate 78, respiratory rate 18, blood pressure 129/56, O2 sat 95% on room air. GENERAL: No acute distress. Using BiPAP. CHEST: Clear to auscultation. CARDIOVASCULAR: Regular rate and rhythm. Normal S1 and S2. ABDOMEN: Soft. EXTREMITIES: Trace edema. CARDIOVASCULAR MEDICATIONS 1. KCl 20 mEq p.r.n. 2. Metoprolol tartrate 25 mg b.i.d. 3. Lovenox 60 mg daily. 4. Metoprolol tartrate 5 mg IV q.6 h. as needed. Sodium 134, potassium 3, chloride 104, bicarbonate 25, BUN 6, creatinine 0.5, glucose 108. Calcium 7.3. AST 22, ALT 20, eva phos 65, total bilirubin 0.3. Total protein 4.9 and albumin 1.5. Telemetry in sinus rhythm. ASSESSMENT: 1. Paroxysmal atrial fibrillation with rapid response: Currently in sinus rhythm. 2. Esophageal stricture: Status post exploratory laparotomy, right thoracotomy and esophagogastrectomy with thoracoabdominal esophagogastrostomy and pyloroplasty. 3. Hypothyroidism. 4. Hyperlipidemia. 5. History of bipolar disorder with schizoaffective disorder. RECOMMENDATIONS: Continue current cardiovascular medications. Once cleared by surgery, consider full anticoagulation. Job#: [id number] TOSHA
[2018-02-23] MEDS: PANTOPRAZOLE 40 MG 10ML VIAL IV SCH (16:52)
[2018-02-23] MEDS: CENTRAL TPN FORMULA 1 BAG IV SCH (20:30)
[2018-02-24] VITALS (8 sets, daily range): BP systolic 109–143; BP diastolic 52–76
[2018-02-24] MEDS ORDERED: ACETAMINOPHEN 1000 MG/100 ML IV STA (04:51)
[2018-02-24] MEDS ORDERED: PIPER-TAZ 3.375 GM 100 ML IV SCH (06:00)
--- NOTE | 2018-02-24 06:44 | Diagnostic Imaging Report ---
CHEST SINGLE (PORTABLE), 02/24/2018 4:51 AM Technique: CHEST SINGLE (PORTABLE) Comparison: 02/17/2018 Clinical history: Fever Findings: See below. Stable cardiac silhouette. Unchanged severe shoulder degenerative changes and displaced right rib fractures. Impression: 1. Lines/Tubes: Removal of right chest tube with persistent right chest wall gas. 2. Increased diffuse opacities which may reflect underlying edema and layering pleural fluid. 3. Bibasilar opacities, possibly due to atelectasis, aspiration or infection. 4. No pneumothorax. Signed by: Dr Zahira Petit MD on 02/24/2018 6:41 AM
[2018-02-24 07:29] LABS: BASOPHILS # (AUTO) 0.1 (0.0-0.1); BASOPHILS % 0.4 % (0.0-1.0); EOSINOPHILS % 0.1 % (0.0-6.0); HEMATOCRIT 25.2 % (34.2-44.1); HEMOGLOBIN 8.7 g/dL (12.0-16.0); LYMPHOCYTES # (AUTO) 1.3 (1.0-3.2); LYMPHOCYTES % 10.5 % (18.0-39.1); MEAN CORPUSCULAR HEMOGLOBIN 30.4 pg (28-32); MEAN CORPUSCULAR HGB CONC 34.5 g/dL (31-35); MEAN CORPUSCULAR VOLUME 88.1 fL (81-99); MONOCYTES # (AUTO) 0.4 (0.2-0.8); MONOCYTES % 3.4 % (4.4-11.3); NEUTROPHILS # (AUTO) 10.1 (2.1-6.9); NEUTROPHILS % 84.9 % (38.7-80.0); PLATELET COUNT 523 x10e3/uL (140-360); RED BLOOD COUNT 2.86 x10e6/uL (3.6-5.1); RED CELL DISTRIBUTION WIDTH 14.3 % (11.7-14.4)
[2018-02-24] MEDS ORDERED: VANCOMYCIN 1GM/NS 250 ML 250 ML IV SCH (07:30)
[2018-02-24 07:51] LABS: ANION GAP 10.6 mmol/L (8-16); BLOOD UREA NITROGEN 7 mg/dL (7-26); BUN/CREATININE RATIO 13 (6-25); CALCIUM 7.3 mg/dL (8.4-10.2); CARBON DIOXIDE 23 mmol/L (22-29); CHLORIDE 101 mmol/L (98-107); CREATININE, SERUM 0.55 mg/dL (0.57-1.11); EST GLOMERULAR FILTRATION RATE > 60 ML/MIN (60-); GLUCOSE 102 mg/dL (74-118); POTASSIUM 3.6 mmol/L (3.5-5.1); SODIUM 131 mmol/L (136-145)
[2018-02-24] MEDS: BENZTROPINE MESYLATE 1 MG TAB PO SCH ×2 (09:05→17:10)
[2018-02-24] MEDS: HALOPERIDOL 5 MG TAB PO SCH ×2 (09:05→17:10)
[2018-02-24] MEDS: METOPROLOL TARTRATE 25 MG TAB PO SCH ×2 (09:06→17:00)
[2018-02-24] MEDS: VANCOMYCIN 1GM/NS 250 ML 250 ML IV SCH ×2 (09:56→20:38)
[2018-02-24] MEDS: ACETAMINOPHEN 325 MG TAB PO PRN (10:09)
[2018-02-24] MEDS: PANTOPRAZOLE 40 MG 10ML VIAL IV SCH (17:10)
[2018-02-24] MEDS: DEXTROSE 5%/LACTATED RINGERS 1,000 ML IV SCH (19:32)
--- NOTE | 2018-02-24 20:04 | Progress Note ---
DATE: February 24, 2018 CARDIOLOGY PROGRESS NOTE SUBJECTIVE: Patient denies chest pain or shortness of breath. She is confused. She keeps asking for help, but she is unable to complete her train of thought. OBJECTIVE VITAL SIGNS: Temperature 101.7 degrees, pulse 62, respiratory rate 18, blood pressure 113/52, oxygen saturation 97% on room air. GENERAL: Elderly woman, frail, chronically ill-appearing, no acute distress. LUNGS: Clear to auscultation bilaterally. No wheezes or crackles. CARDIOVASCULAR: Normal rate, regular rhythm. No murmur. Normal S1 and S2. ABDOMEN: Soft. EXTREMITIES: No edema. CARDIAC MEDICATIONS 1. Metoprolol tartrate 5 mg IV q.6 h. p.r.n. 2. Metoprolol tartrate 25 mg p.o. b.i.d. LABS: WBC 11.95, hemoglobin 8.7, hematocrit 25.2, platelets 523. Sodium 131, potassium 3.6, chloride 101, CO2 23, BUN 7, creatinine 0.55. C. diff negative. TELEMETRY: Normal sinus rhythm. IMPRESSION 1. Paroxysmal atrial fibrillation with rapid ventricular response, currently sinus rhythm. 2. Esophageal stricture status post exploratory laparotomy, right thoracotomy and esophagogastrectomy with thoracoabdominal esophagogastrostomy and pyloroplasty. 3. Hypothyroidism. 4. Hyperlipidemia. 5. History of bipolar disorder with schizoaffective disorder. RECOMMENDATIONS: Continue current cardiac medications. Once cleared from a surgical standpoint, patient will need increase to therapeutic anticoagulation. Evaluation of fever and leukocytosis per primary service. Cultures are currently pending. Continue monitoring patient on telemetry. No further cardiac evaluation is indicated at this time. Thank you for this consult. We will continue to follow. Job#: [id number] EV
[2018-02-24] MEDS: ONDANSETRON HCL INJ 2 MG/ML VIAL IV PRN (20:41)
[2018-02-25] VITALS: BP 121/57
[2018-02-25 04:00] VITALS: BP 127/56
[2018-02-25 08:09] VITALS: BP 124/73
[2018-02-25] MEDS: ONDANSETRON HCL INJ 2 MG/ML VIAL IV PRN ×2 (08:52→14:08)
[2018-02-25] MEDS: VANCOMYCIN 1GM/NS 250 ML 250 ML IV SCH ×2 (09:00→21:05)
[2018-02-25] MEDS: HALOPERIDOL 5 MG TAB PO SCH ×2 (09:17→16:56)
[2018-02-25] MEDS: BENZTROPINE MESYLATE 1 MG TAB PO SCH ×2 (09:17→16:56)
[2018-02-25] MEDS: METOPROLOL TARTRATE 25 MG TAB PO SCH ×2 (09:18→16:56)
[2018-02-25] MEDS: ACETAMINOPHEN 325 MG TAB PO PRN (09:18)
[2018-02-25 10:01] VITALS: BP 124/73
[2018-02-25] MEDS: DEXTROSE 5%/LACTATED RINGERS 1,000 ML IV SCH (11:56)
--- NOTE | 2018-02-25 12:32 | Progress Note ---
DATE: February 25, 2018 CARDIOLOGY PROGRESS NOTE SUBJECTIVE: Patient denies chest pain or shortness of breath. She complains of pain at her incision when she breathes. Otherwise, she states that she was unable to keep down breakfast. OBJECTIVE VITAL SIGNS: Temperature 100 degrees, pulse 89, respiratory rate 20, blood pressure 124/73, oxygen saturation 94% on room air. GENERAL: Chronically ill-appearing woman, frail, cachectic, no acute distress, awake and alert. LUNGS: Clear to auscultation bilaterally. No wheezes or crackles. CARDIOVASCULAR: Normal rate, regular rhythm. No murmur. Normal S1, S2. ABDOMEN: Soft. EXTREMITIES: No edema. CARDIAC MEDICATIONS: Metoprolol tartrate 25 mg p.o. b.i.d. LABS: None today. TELEMETRY: Normal sinus rhythm. IMPRESSION 1. Paroxysmal atrial fibrillation with rapid ventricular response, currently sinus rhythm. 2. Esophageal stricture, status post exploratory laparotomy, right thoracotomy and esophagogastrectomy with thoracoabdominal esophagogastrostomy and pyloroplasty. 3. Hypothyroidism. 4. Hyperlipidemia. 5. History of bipolar disorder and schizoaffective disorder. RECOMMENDATIONS: Continue current cardiac medications. Once cleared from the surgical standpoint, she will need to increase her anticoagulation to therapeutic dosing. Evaluation of fever and leukocytosis per primary service. Cultures are growing Staphylococcus aureus in both the catheter tip and urine culture. Blood cultures are likewise growing gram-positive cocci in pairs, suspect this will bar turner to be Staphylococcus aureus as well. Monitor patient on telemetry. Thank you for this consult. We will continue to follow. Job#: [id number] VAS
[2018-02-25 13:17] VITALS: BP 108/53
[2018-02-25] MEDS: LOPERAMIDE HCL 2 MG CAP PO PRN (15:45)
[2018-02-25] MEDS: PANTOPRAZOLE 40 MG 10ML VIAL IV SCH (16:56)
[2018-02-25] MEDS ORDERED: VANCOMYCIN 1GM/NS 250 ML 250 ML IV SCH (21:00)
[2018-02-25 21:44] VITALS: BP 130/56
[2018-02-26] VITALS (8 sets, daily range): BP systolic 114–126; BP diastolic 55–61
[2018-02-26] MEDS: DEXTROSE 5%/LACTATED RINGERS 1,000 ML IV SCH ×2 (05:45→21:32)
[2018-02-26] MEDS: HALOPERIDOL 5 MG TAB PO SCH ×2 (08:09→16:42)
[2018-02-26] MEDS: METOPROLOL TARTRATE 25 MG TAB PO SCH ×2 (08:09→16:42)
[2018-02-26] MEDS: BENZTROPINE MESYLATE 1 MG TAB PO SCH ×2 (08:09→16:42)
--- NOTE | 2018-02-26 10:16 | Progress Note ---
DATE: February 26, 2018 CARDIOLOGY PROGRESS NOTE SUBJECTIVE: The patient denies chest pain or shortness of breath. OBJECTIVE VITALS: Temperature 97.6 degrees, pulse 80, respiratory rate 18, blood pressure 117/58, oxygen saturation 96% on 2 L nasal cannula. GENERAL: Chronically ill-appearing woman frail and cachectic, and in no acute distress. Awake and alert. LUNGS: Clear to auscultation bilaterally. No wheezes or crackles. CARDIOVASCULAR: Normal rate. Regular rhythm. No murmur. Normal S1 and S2. ABDOMEN: Soft and nontender. EXTREMITIES: No edema. CARDIAC MEDICATIONS: Metoprolol tartrate 25 mg p.o. b.i.d. LABS: None today. Telemetry is normal sinus rhythm. IMPRESSION 1. Paroxysmal atrial fibrillation with rapid ventricular response: Currently sinus rhythm. 2. Esophageal stricture: Status post exploratory laparotomy, right thoracotomy and esophagogastrectomy with thoracoabdominal esophagogastrostomy and pyloroplasty. 3. Methicillin-resistant Staphylococcus aureus bacteremia: Line associated and methicillin-resistant Staphylococcus aureus urinary tract infection. 4. Hypothyroidism. 5. Hyperlipidemia. 6. History of bipolar disorder and schizoaffective disorder. Continue current cardiac medications. Monitor the patient on telemetry. Once she is cleared from a surgical standpoint, she will need to increase her anticoagulation to therapeutic dosing. IV antibiotics per primary service. Although the patient is growing Staphylococcus aureus in her blood, she is not a candidate for transesophageal echocardiogram at this time given her recent gastrointestinal procedure. Recommend medical management. We will repeat TTE to evaluate for endocarditis. Thank you for this consult. We will continue to follow. Job#: [id number] TOSHA
[2018-02-26] MEDS ORDERED: ONDANSETRON HCL 4 MG ORAL DISINTEGRATING TAB SL PRN (11:15)
[2018-02-26] MEDS ORDERED: ONDANSETRON HCL 4 MG ORAL DISINTEGRATING TAB PO PRN (15:00)
[2018-02-26] MEDS: PANTOPRAZOLE 40 MG 10ML VIAL IV SCH (16:42)
[2018-02-26] MEDS: VANCOMYCIN 1GM/NS 250 ML 250 ML IV SCH (21:00)
[2018-02-27] VITALS: BP 129/58
[2018-02-27 00:50] VITALS: BP 134/60
[2018-02-27] MEDS: DEXTROSE 5%/LACTATED RINGERS 1,000 ML IV SCH (03:53)
[2018-02-27 07:46] VITALS: BP 139/62
[2018-02-27] MEDS ORDERED: HALOPERIDOL LACTATE 5 MG/ML VIAL ONE (09:34)
[2018-02-27] MEDS ORDERED: METOPROLOL TARTRATE 25 MG TAB ONE (09:35)
[2018-02-27] MEDS: BENZTROPINE MESYLATE 1 MG TAB PO SCH ×2 (09:47→16:21)
[2018-02-27] MEDS: HALOPERIDOL 5 MG TAB PO SCH ×2 (09:47→16:21)
[2018-02-27] MEDS: METOPROLOL TARTRATE 25 MG TAB PO SCH ×2 (09:47→16:21)
[2018-02-27 10:50] VITALS: BP 139/62
[2018-02-27 11:48] VITALS: BP 127/57
--- NOTE | 2018-02-27 12:12 | Progress Note ---
DATE: February 27, 2018 CARDIOLOGY PROGRESS NOTE SUBJECTIVE: The patient denies chest pain or shortness of breath. OBJECTIVE VITALS: Temperature 96.5 degrees, pulse 73, respiratory rate 20, blood pressure 139/62, oxygen saturation 98% on room air. GENERAL: Chronically ill-appearing woman, frail and cachectic, in no acute distress. Awake and alert. LUNGS: Clear to auscultation bilaterally. No wheezes or crackles. CARDIOVASCULAR: Normal rate. Regular rhythm. No murmur. Normal S1 and S2. ABDOMEN: Soft and nontender. EXTREMITIES: No edema. CARDIAC MEDICATIONS: Metoprolol tartrate 25 mg p.o. b.i.d. LABS: WBC 11.95, hemoglobin 8.7, hematocrit 25.2, platelets 523. Sodium 131, potassium 3.6, chloride 101, CO2 23, BUN 7, creatinine 0.55. TELEMETRY: Normal sinus rhythm. IMPRESSION 1. Paroxysmal atrial fibrillation with rapid ventricular response, currently sinus rhythm. 2. Esophageal stricture, status post exploratory laparotomy, right thoracotomy and esophagogastrectomy with thoracoabdominal esophagogastrostomy and pyloroplasty. 3. Methicillin-resistant Staphylococcus aureus bacteremia, line associated, with methicillin-resistant Staphylococcus aureus urinary tract infection as well. 4. Hypothyroidism. 5. Hyperlipidemia. 6. History of bipolar disorder and schizoaffective disorder. RECOMMENDATIONS: Continue current cardiac medications. Monitor the patient on telemetry. IV antibiotics per primary service. The patient's transthoracic echocardiogram was suspicious for vegetation on the mitral valve. However, due to her recent esophageal surgery, she is not a candidate for YASIR at this time. Recommend medical management. Continue current cardiac medications otherwise. Thank you for this consult. We will continue to follow. Job#: [id number]
[2018-02-27 15:55] VITALS: BP 130/58
[2018-02-27] MEDS: PANTOPRAZOLE 40 MG 10ML VIAL IV SCH (16:21)
== END 2018-02-27 20:04 | DRG 326 ==
LOC: OR 07:21 → ICU 18:14 → MED/SURG 02-21 16:57 → MED/SURG3 02-27 01:03
PROVIDERS: ADMIT Surgery; ATTEND Surgery
PROC: 0DQ70ZZ Repair Stomach, Pylorus, Open Approach (ICD-10-PCS; 2018-02-10)
PROC: 0BH17EZ Insertion of Endotracheal Airway into Trachea, Via Natural or Artificial Opening (ICD-10-PCS; 2018-02-10)
PROC: 5A1955Z Respiratory Ventilation, Greater than 96 Consecutive Hours (ICD-10-PCS; 2018-02-10)
PROC: 0DB Gastrointestinal System, Excision (ICD-10-PCS; 2018-02-10)
PROC: 0DB30ZZ Excision of Lower Esophagus, Open Approach (ICD-10-PCS; principal; 2018-02-10 08:30)
PROC: 0DB60ZZ Excision of Stomach, Open Approach (ICD-10-PCS; 2018-02-10 08:30)
PROC: 30233N1 Transfusion of Nonautologous Red Blood Cells into Peripheral Vein, Percutaneous Approach (ICD-10-PCS; 2018-02-12)
PROC: 3E0436Z Introduction of Nutritional Substance into Central Vein, Percutaneous Approach (ICD-10-PCS; 2018-02-15)
DX: K22.2 Esophageal obstruction (principal); J95.821 Acute postprocedural respiratory failure; T80.211A Bloodstream infection due to central venous catheter, initial encounter; T83.511A Infection and inflammatory reaction due to indwelling urethral catheter, initial encounter; A41.02 Sepsis due to Methicillin resistant Staphylococcus aureus; F31.9 Bipolar disorder, unspecified; F25.9 Schizoaffective disorder, unspecified; I48.0 Paroxysmal atrial fibrillation; E78.5 Hyperlipidemia, unspecified; E03.9 Hypothyroidism, unspecified; Z88.0 Allergy status to penicillin
CPT/HCPCS: 36415; 36600; 71045; 71046; 80048; 80053; 80202; 82805; 82948; 83735; 84100; 84134; 84436; 84443; 84478; 84479; 85007; 85014; 85018; 85025; 85027; 85610; 85730; 86850; 86900; 86920; 87040; 87070; 87071; 87086; 87186; 87205; 87493; 88307; 88309; 88312; 93005; 93306; 94002; 94003; 96361; 96365; 96366; 96367; 96372; 96376; 97139; J1100; J1170; J1630; J1650; J1940; J1956; J2001; J2250; J2370; J2405; J3370; J3480; J7030; J7040; J7050; J7120; P9016

== ENCOUNTER → 2018-06-11 | Day surgery (SDC) | payer MEDICARE ==
[~2018-06-11] MED LIST changes: +ACETAMINOPHEN325 M1 PO; +BENZTROPINE MESY1 MG PO; +CYMBALTA30 MG PO; +ELIQUIS PO; -HALDOL5 MG GT; +HALDOL5 MG PO; +LEVSIN0.125 MG PO; +LIDOCAINE HCL 2% LOCAL INJ 5 ML SDV VIAL INJ ONE; -LIPITOR20 MG GT; +LIPITOR20 MG PO; +METOPROLOL TART25 MG PO; +OLANZAPINE5 MG PO; -OMEPRAZOLE40 MG GT; +OMEPRAZOLE40 MG PO; +PROPOFOL IV EMULSION 10 MG/ML 50 ML VIAL ONE; -Z.0.LEVOXYL100 MCG GT; +Z.0.LEVOXYL100 MCG PO
--- NOTE | 2018-06-11 12:28 | Operative Report ---
DATE OF PROCEDURE: June 11, 2018 REFERRING PHYSICIAN: Dr. López. PROCEDURE PERFORMED: Esophagogastroduodenoscopy with esophageal dilatation. INDICATIONS FOR PROCEDURE: Dysphagia, nausea and vomiting. MEDICATION: Patient was done under MAC. Please see anesthesiologist's note. PROCEDURE: With patient in the left lateral decubitus position, the flexible fiberoptic Olympus gastroscope was introduced into the esophagus under direct visualization without any difficulty. There was some patchy erythema noted in the distal esophagus. There was a stricture noted at the GE junction which was a postoperative stricture. It could not be traversed with the scope, and that was dilated to a size 48-Latvian Jones. The scope was then advanced with ease into the stomach, and an approximately 4 mm nodule was noted in the gastric stump and that was biopsied. A Billroth I anastomosis was noted, and that was intact. It was traversed with ease, and the scope was advanced all the way to the 2nd portion of the duodenum. The scope was then withdrawn slowly. Mucosa overlying the proximal 2nd portion and the duodenal bulb appeared to be within normal limits. The scope was then withdrawn back into the stomach and retroflexed, and postoperative changes were noted. The scope was then straightened out. The stomach was decompressed. The scope was subsequently withdrawn. Patient tolerated the procedure well. IMPRESSION: 1. Distal esophagitis. 2. Stricture at gastroesophageal junction, postoperative, dilated to a size 48-Latvian Jones. 3. Status post Billroth I anastomosis intact. 4. Nodule, minute, gastric stump, biopsied. PLAN: Follow up histology. Increase omeprazole to 40 mg 1 p.o. a.c. b.i.d. Job#: [id number] EV cc:MD SHERRI SHELBY MD
== END | disposition home or self-care (01) ==
LOC: OR 08:43
PROVIDERS: ATTEND Internal Medicine Gastroenterology
DX: K22.2 Esophageal obstruction (principal); K20.9 Esophagitis, unspecified; K31.89 Other diseases of stomach and duodenum; K21.9 Gastro-esophageal reflux disease without esophagitis; Z43.1 Encounter for attention to gastrostomy; K44.9 Diaphragmatic hernia without obstruction or gangrene; Z98.0 Intestinal bypass and anastomosis status; K59.00 Constipation, unspecified; E03.9 Hypothyroidism, unspecified; E78.00 Pure hypercholesterolemia, unspecified; M06.9 Rheumatoid arthritis, unspecified; I48.91 Unspecified atrial fibrillation; F32.9 Major depressive disorder, single episode, unspecified; F20.9 Schizophrenia, unspecified; Z88.0 Allergy status to penicillin; Z79.02 Long term (current) use of antithrombotics/antiplatelets; Z96.652 Presence of left artificial knee joint; Z96.649 Presence of unspecified artificial hip joint
CPT/HCPCS: 43239; 43450; 88305; 88312; J2001

== ENCOUNTER 2018-08-26 16:48 | Inpatient (IN) | payer MEDICARE ==
[~2018-08-26] VITALS: Ht 167.6 cm; Wt 53.1 kg
[~2018-08-26 16:48] MED LIST changes: -LIDOCAINE HCL 2% LOCAL INJ 5 ML SDV VIAL INJ ONE; -PROPOFOL IV EMULSION 10 MG/ML 50 ML VIAL ONE
[2018-08-26 17:30] VITALS: BP 131/60
[2018-08-26] MEDS ORDERED: DEXTROSE 5%/0.45% SOD CHL 1,000 ML IV ONE (18:15)
[2018-08-26] MEDS ORDERED: ZOFRAN ODT4 MG PO (18:29)
[2018-08-26] MEDS ORDERED: LYRICA25 MG PO (18:29)
[2018-08-26 19:33] LABS: BASOPHILS % 0.5 % (0.0-1.0); EOSINOPHILS % 0.5 % (0.0-6.0); HEMATOCRIT 41.2 % (34.2-44.1); HEMOGLOBIN 13.6 g/dL (12.0-16.0); LYMPHOCYTES # (AUTO) 2.3 (1.0-3.2); LYMPHOCYTES % 28.6 % (18.0-39.1); MEAN CORPUSCULAR HEMOGLOBIN 30.8 pg (28-32); MEAN CORPUSCULAR VOLUME 93.2 fL (81-99); MONOCYTES # (AUTO) 0.4 (0.2-0.8); MONOCYTES % 4.4 % (4.4-11.3); NEUTROPHILS # (AUTO) 5.3 (2.1-6.9); NEUTROPHILS % 65.6 % (38.7-80.0); PLATELET COUNT 261 x10e3/uL (140-360); RED BLOOD COUNT 4.42 x10e6/uL (3.6-5.1)
[2018-08-26 19:54] LABS: ALANINE AMINOTRANSFERASE 14 IU/L (0-55); ALBUMIN 3.6 g/dL (3.5-5.0); ALBUMIN/GLOBULIN RATIO 1.1 (0.8-2.0); ALKALINE PHOSPHATASE 80 IU/L (40-150); ANION GAP 18.2 mmol/L (8-16); BLOOD UREA NITROGEN 12 mg/dL (7-26); BUN/CREATININE RATIO 16 (6-25); CALCIUM 9.6 mg/dL (8.4-10.2); CARBON DIOXIDE 21 mmol/L (22-29); CHLORIDE 99 mmol/L (98-107); CREATININE, SERUM 0.77 mg/dL (0.57-1.11); EST GLOMERULAR FILTRATION RATE > 60 ML/MIN (60-); GLUCOSE 76 mg/dL (74-118); POTASSIUM 3.2 mmol/L (3.5-5.1); SODIUM 135 mmol/L (136-145)
[2018-08-26 20:00] VITALS: BP 125/60
[2018-08-26 20:15] LABS: THYROID STIMULATING HORMONE 0.261 uIU/mL (0.350-4.940)
[2018-08-26 22:00] VITALS: BP 125/60
[2018-08-26] MEDS: BENZTROPINE MESYLATE 1 MG TAB PO SCH (22:36)
--- NOTE | 2018-08-26 22:39 | History and Physical ---
CHIEF COMPLAINT: Failure to thrive, not eating, dysphagia. HISTORY OF PRESENT ILLNESS: Patient with a history of bipolar disorder, esophageal stricture, recently underwent surgery and dilatation. Patient had a G-tube feeding. G-tube was eventually removed after she started eating. She was discharged from jail to home. Patient was losing weight and she weighs 95 pounds, lost more than 40 pounds. She was weak, dehydrated, cachectic, malnourished; so, patient is admitted for further workup and treatment. PAST MEDICAL HISTORY: Bipolar disorder, esophageal stricture, psychosis, and hypothyroidism. SURGICAL HISTORY: Esophageal dilatation and surgery for stricture by Dr. Foreign Russ. PERSONAL HISTORY: No history of smoking or alcohol. MEDICATIONS: Haldol, Protonix, and levothyroxine. PHYSICAL EXAMINATION VITAL SIGNS: Normal. HEENT: Normal. NECK: Normal. LUNGS: Bilaterally normal. ABDOMEN: Soft, nontender. Bowel sounds normal. LOWER EXTREMITIES: No edema. SKIN: Turgor dehydrated. ASSESSMENT 1. Dysphagia with previous history of esophageal stricture. 2. Psychosis. 3. Bipolar. PLAN 1. Admit patient. 2. Keep on IV fluids. 3. GI consultation. 4. Esophagogram. 5. CBC and CMP. Job#: [id number]
--- NOTE | 2018-08-26 23:01 | Diagnostic Imaging Report ---
CHEST XRAY LINE PLACEMENT, 08/26/2018 9:53 PM Technique: CHEST XRAY LINE PLACEMENT Comparison: 02/24/2018 Clinical history: PICC line placement Findings: See below. Stable cardiac silhouette. Unchanged severe shoulder degenerative changes and right rib fractures. Impression: 1. Lines/Tubes: Right PICC line tip overlies the expected distal SVC. 2. Hyperinflation with right apical opacity, possibly or parenchymal scarring. Questionable nodules over the right midlung. Recommend follow-up nonemergent upright PA and lateral. 3. No effusion or pneumothorax. Signed by: Dr Zahira Petit MD on 08/26/2018 10:58 PM
[2018-08-27] VITALS (7 sets, daily range): BP systolic 98–151; BP diastolic 52–61
[2018-08-27] MEDS ORDERED: DEXTROSE 5%/0.45% SOD CHL 1,000 ML IV ONE (00:45)
[2018-08-27] MEDS: PANTOPRAZOLE 40 MG 10ML VIAL IV SCH ×3 (02:51→20:49)
[2018-08-27] MEDS: METOCLOPRAMIDE HCL 10 MG/2ML VIAL IV SCH ×4 (06:38→23:09)
[2018-08-27] MEDS: ONDANSETRON HCL 4 MG ORAL DISINTEGRATING TAB PO SCH ×4 (06:38→17:19)
[2018-08-27] MEDS: LEVOTHYROXINE SODIUM 100 MCG TAB PO SCH (06:38)
[2018-08-27] MEDS ORDERED: PANTOPRAZOLE SOD 40 MG TABEC PO SCH (07:30)
[2018-08-27] MEDS: BENZTROPINE MESYLATE 1 MG TAB PO SCH ×3 (09:00→20:49)
[2018-08-27] MEDS ORDERED: ATORVASTATIN 20 MG TAB PO SCH (09:00)
[2018-08-27] MEDS: PREGABALIN 25 MG CAP PO SCH ×2 (09:00→17:19)
[2018-08-27] MEDS: DULOXETINE HCL 30 MG DELAYED RELEASE PO SCH ×2 (09:00→17:19)
[2018-08-27] MEDS: HALOPERIDOL 5 MG TAB PO SCH ×2 (09:00→17:19)
--- NOTE | 2018-08-27 14:18 | Diagnostic Imaging Report ---
PROCEDURE:X-RAY UPPER GI SERIES WITH AIR CONTRAST COMPARISON:[facility], DX, UPPER GI W/AIR CONTR, 01/09/2018, 9:17. INDICATIONS:Esophageal stricture FINDINGS:The patient was given air crystals, thick barium and thin barium to drink in upright position. Multiple images of the esophagus, stomach and duodenum were obtained. The drinking in the prone position was not performed due to the significant amount of aspiration initially encountered. There is a stricture of the esophagus in the midportion just below the level of the aortic knob. Aspiration and is significant extending into the right mainstem bronchus. Dilatation of the esophagus distal to the stricture is noted. The stomach is small and there is widening at the esophageal hiatus suggesting a partial gastric pull-through. Stricture of the esophagus location could be secondary to postoperative anastomosis. There is a compression deformity of an operative lumbar spine vertebral body. Fluoroscopy time: 0.7 minutes. Total dose: 3.53 mGy CONCLUSION: 1. Esophageal stricture in the mid esophagus at a level where there has been a gastric pull-through and anastomosis. 2. Significant amount of tracheal aspiration noted at the start of the procedure precludes complete evaluation. 3. Modified barium swallow to follow this exam was placed on hold due to the aspiration. Enio Daniels D.O. Dictated by: Enio Daniels D.O. on 08/27/2018 at 14:26 Electronically approved by: Enio Daniels D.O. on 08/27/2018 at 14:26
[2018-08-27] MEDS: DEXTROSE 5%/0.45% SOD CHL 1,000 ML IV SCH (15:14)
[2018-08-27] MEDS: ATORVASTATIN 10 MG TAB PO SCH (15:21)
[2018-08-27] MEDS ORDERED: POTASSIUM CHLORIDE 20MEQ/100ML 100 ML IV ONE (17:45)
[2018-08-27] MEDS: ONDANSETRON HCL INJ 2 MG/ML VIAL IV PRN (20:49)
[2018-08-28] VITALS (7 sets, daily range): BP systolic 93–119; BP diastolic 51–60
[2018-08-28] MEDS: ONDANSETRON HCL 4 MG ORAL DISINTEGRATING TAB PO SCH ×4 (00:38→17:14)
[2018-08-28] MEDS: DEXTROSE 5%/0.45% SOD CHL 1,000 ML IV SCH ×4 (01:58→21:00)
[2018-08-28] MEDS: METOCLOPRAMIDE HCL 10 MG/2ML VIAL IV SCH ×3 (05:28→17:14)
[2018-08-28] MEDS: LEVOTHYROXINE SODIUM 100 MCG TAB PO SCH (05:28)
[2018-08-28] MEDS: BENZTROPINE MESYLATE 1 MG TAB PO SCH ×3 (09:00→21:01)
[2018-08-28] MEDS: DULOXETINE HCL 30 MG DELAYED RELEASE PO SCH ×2 (09:00→17:14)
[2018-08-28] MEDS: PREGABALIN 25 MG CAP PO SCH ×2 (09:00→17:14)
[2018-08-28] MEDS: HALOPERIDOL 5 MG TAB PO SCH ×2 (09:00→17:14)
[2018-08-28] MEDS: PANTOPRAZOLE 40 MG 10ML VIAL IV SCH ×2 (09:59→21:01)
[2018-08-28] MEDS ORDERED: ONDANSETRON HCL INJ 2 MG/ML VIAL ONE (13:09)
--- NOTE | 2018-08-28 13:15 | Operative Report ---
DATE OF PROCEDURE: August 28, 2018 REFERRING PHYSICIAN: Dr. López. PROCEDURE PERFORMED: Esophagogastroduodenoscopy with esophageal dilatation and biopsies. INDICATIONS FOR PROCEDURE: Dysphagia, stricture of esophagogastric anastomosis on barium swallow. MEDICATION: Patient was done under MAC. Please see anesthesiologist's note. PROCEDURE: With the patient in the left lateral decubitus position, the flexible fiberoptic Olympus gastroscope was introduced into the esophagus under direct visualization without any difficulty. The mucosa overlying the esophagus revealed diffuse inflammatory changes. There was a mild stricture noted at the esophagogastric anastomosis, and that was dilated to size 50-Malay Jones. The scope was then advanced with ease into the stomach. Mucosa overlying the antrum and the body revealed some diffuse erythema and moderate edema, and biopsies were obtained and sent to stain for H. pylori. The pylorus was of normal contour and shape, was intubated with ease, and scope was advanced all the way to the 2nd portion of the duodenum. The scope was then withdrawn slowly. Mucosa overlying the proximal 2nd portion and the duodenal bulb, other than for an approximately 5 mm nodule in the duodenal bulb that was biopsied, appeared to be within normal limits. The scope was then withdrawn back into the stomach and retroflexed, and postoperative changes were noted. The scope was then straightened out. It was subsequently withdrawn. Patient tolerated the procedure well. IMPRESSION: 1. Esophagitis. 2. Esophageal stricture at the esophagogastric anastomosis dilated to size 50-Malay Jones. 3. Gastritis biopsied. Biopsies sent to stain for H. pylori. 4. Duodenal bulb nodule, biopsied. PLAN: Follow up histology. Continue current therapy. Initiate full liquid diet. Job#: [id number] EV cc:MD SVEN SOSA MD
--- NOTE | 2018-08-28 15:53 | Diagnostic Imaging Report ---
PROCEDURE: X-RAY MODIFIED BARIUM SWALLOW COMPARISON: None. INDICATION: Dysphagia DISCUSSION: Fluoroscopic examination was performed in conjunction with speech pathology during swallowing a variety of thin and thick liquid consistencies. No penetration or aspiration is demonstrated. CONCLUSION: No penetration or aspiration is demonstrated. Please refer to the speech pathology report for further details. Signed by: Dr. Salas Ferguson MD on 08/28/2018 3:50 PM
[2018-08-28] MEDS: ATORVASTATIN 10 MG TAB PO SCH (17:14)
[2018-08-28] MEDS: CENTRAL TPN FORMULA 1 BAG IV SCH (19:35)
[2018-08-28] MEDS ORDERED: PROPOFOL IV EMULSION 10 MG/ML 50 ML VIAL ONE (19:40)
[2018-08-28] MEDS ORDERED: METOCLOPRAMIDE HCL 10 MG/2ML VIAL ONE (19:40)
[2018-08-29] VITALS: BP 111/55
[2018-08-29] MEDS: METOCLOPRAMIDE HCL 10 MG/2ML VIAL IV SCH ×4 (00:25→18:06)
[2018-08-29] MEDS: ONDANSETRON HCL 4 MG ORAL DISINTEGRATING TAB PO SCH ×4 (00:25→18:06)
[2018-08-29 04:00] VITALS: BP 94/53
[2018-08-29] MEDS: LEVOTHYROXINE SODIUM 100 MCG TAB PO SCH (05:41)
[2018-08-29 08:00] VITALS: BP 103/55
[2018-08-29] MEDS: PREGABALIN 25 MG CAP PO SCH ×2 (09:00→18:06)
[2018-08-29] MEDS: ATORVASTATIN 10 MG TAB PO SCH (09:00)
[2018-08-29] MEDS: DULOXETINE HCL 30 MG DELAYED RELEASE PO SCH ×2 (09:00→18:06)
[2018-08-29] MEDS: HALOPERIDOL 5 MG TAB PO SCH ×2 (09:00→18:06)
[2018-08-29] MEDS: PANTOPRAZOLE 40 MG 10ML VIAL IV SCH ×2 (09:00→21:51)
[2018-08-29] MEDS: BENZTROPINE MESYLATE 1 MG TAB PO SCH ×3 (09:00→21:51)
[2018-08-29 12:00] VITALS: BP 111/53
[2018-08-29] MEDS: DEXTROSE 5%/0.45% SOD CHL 1,000 ML IV SCH (13:45)
[2018-08-29 16:00] VITALS: BP 105/51
[2018-08-29 20:00] VITALS: BP 113/57
[2018-08-29] MEDS: CENTRAL TPN FORMULA 1 BAG IV SCH (21:56)
[2018-08-30] VITALS: BP 111/57
[2018-08-30 04:00] VITALS: BP 115/56
[2018-08-30] MEDS: METOCLOPRAMIDE HCL 10 MG/2ML VIAL IV SCH ×3 (07:59→18:13)
[2018-08-30] MEDS: ONDANSETRON HCL 4 MG ORAL DISINTEGRATING TAB PO SCH ×3 (07:59→18:13)
[2018-08-30] MEDS: LEVOTHYROXINE SODIUM 100 MCG TAB PO SCH (07:59)
[2018-08-30] MEDS: DEXTROSE 5%/0.45% SOD CHL 1,000 ML IV SCH ×2 (07:59→18:13)
[2018-08-30 08:00] VITALS: BP 115/59
[2018-08-30] MEDS: PREGABALIN 25 MG CAP PO SCH ×2 (09:00→18:13)
[2018-08-30] MEDS: DULOXETINE HCL 30 MG DELAYED RELEASE PO SCH ×2 (09:00→18:13)
[2018-08-30] MEDS: HALOPERIDOL 5 MG TAB PO SCH ×2 (09:00→18:13)
[2018-08-30] MEDS: ATORVASTATIN 10 MG TAB PO SCH (09:00)
[2018-08-30] MEDS: PANTOPRAZOLE 40 MG 10ML VIAL IV SCH ×2 (09:00→21:03)
[2018-08-30] MEDS: BENZTROPINE MESYLATE 1 MG TAB PO SCH ×3 (09:00→21:03)
[2018-08-30 12:00] VITALS: BP 103/55
[2018-08-30 16:00] VITALS: BP 106/52
[2018-08-30 20:00] VITALS: BP 105/51
[2018-08-30] MEDS: CENTRAL TPN FORMULA 1 BAG IV SCH (21:45)
[2018-08-31] VITALS (7 sets, daily range): BP systolic 93–105; BP diastolic 54–60
[2018-08-31] MEDS: ONDANSETRON HCL 4 MG ORAL DISINTEGRATING TAB PO SCH ×4 (00:25→18:17)
[2018-08-31] MEDS: METOCLOPRAMIDE HCL 10 MG/2ML VIAL IV SCH ×4 (00:25→18:17)
[2018-08-31] MEDS: DEXTROSE 5%/0.45% SOD CHL 1,000 ML IV SCH ×3 (03:35→21:08)
[2018-08-31 05:57] LABS: ALANINE AMINOTRANSFERASE 10 IU/L (0-55); ALBUMIN/GLOBULIN RATIO 0.8 (0.8-2.0); ALKALINE PHOSPHATASE 60 IU/L (40-150); ANION GAP 9.4 mmol/L (8-16); BLOOD UREA NITROGEN 12 mg/dL (7-26); BUN/CREATININE RATIO 20 (6-25); CALCIUM 7.5 mg/dL (8.4-10.2); CARBON DIOXIDE 23 mmol/L (22-29); CHLORIDE 106 mmol/L (98-107); EST GLOMERULAR FILTRATION RATE > 60 ML/MIN (60-); GLUCOSE 106 mg/dL (74-118); POTASSIUM 4.4 mmol/L (3.5-5.1); SODIUM 134 mmol/L (136-145)
[2018-08-31] MEDS: LEVOTHYROXINE SODIUM 100 MCG TAB PO SCH (06:07)
[2018-08-31] MEDS: BENZTROPINE MESYLATE 1 MG TAB PO SCH ×3 (09:00→21:08)
[2018-08-31] MEDS: ATORVASTATIN 10 MG TAB PO SCH (09:00)
[2018-08-31] MEDS: PREGABALIN 25 MG CAP PO SCH ×2 (09:00→18:17)
[2018-08-31] MEDS: HALOPERIDOL 5 MG TAB PO SCH ×2 (09:00→18:17)
[2018-08-31] MEDS: DULOXETINE HCL 30 MG DELAYED RELEASE PO SCH ×2 (09:00→18:17)
[2018-08-31] MEDS: PANTOPRAZOLE 40 MG 10ML VIAL IV SCH ×2 (09:00→21:08)
[2018-08-31] MEDS: ONDANSETRON HCL INJ 2 MG/ML VIAL IV PRN (21:08)
[2018-09-01 00:36] VITALS: BP 111/56
[2018-09-01] MEDS: ONDANSETRON HCL 4 MG ORAL DISINTEGRATING TAB PO SCH ×3 (00:48→12:52)
[2018-09-01] MEDS: METOCLOPRAMIDE HCL 10 MG/2ML VIAL IV SCH ×3 (00:48→12:52)
[2018-09-01 04:00] VITALS: BP 115/57
[2018-09-01] MEDS: DEXTROSE 5%/0.45% SOD CHL 1,000 ML IV SCH (04:30)
[2018-09-01] MEDS: ONDANSETRON HCL INJ 2 MG/ML VIAL IV PRN (04:30)
[2018-09-01] MEDS: LEVOTHYROXINE SODIUM 100 MCG TAB PO SCH (06:10)
[2018-09-01 08:00] VITALS: BP 129/64
[2018-09-01] MEDS: DULOXETINE HCL 30 MG DELAYED RELEASE PO SCH (09:29)
[2018-09-01] MEDS: PANTOPRAZOLE 40 MG 10ML VIAL IV SCH (09:29)
[2018-09-01] MEDS: BENZTROPINE MESYLATE 1 MG TAB PO SCH (09:29)
[2018-09-01] MEDS: PREGABALIN 25 MG CAP PO SCH (09:30)
[2018-09-01] MEDS: HALOPERIDOL 5 MG TAB PO SCH (09:30)
[2018-09-01] MEDS: ATORVASTATIN 10 MG TAB PO SCH (09:30)
[2018-09-01 11:26] VITALS: BP 129/64
[2018-09-01 11:59] VITALS: BP 142/77
--- NOTE | 2018-09-02 12:51 | Discharge Summary ---
A 73-year-old female patient with history of schizophrenia, dementia, previous history of esophageal stricture status post esophagectomy, was seen in the office with cachexia, malnutrition, severe weight loss of 45 pounds. Patient was admitted to the hospital, received IV hydration. Electrolytes were replaced. Her esophagogram showed evidence of esophageal stricture at anastomotic site. Patient was treated with total parenteral nutrition. She was seen by binder technician Dr. Gabriel Bloom, underwent EGD with dilatation, a 15-Kinyarwanda scope. Patient was able to swallow. She was weak, and she was evaluated by physical therapist. Patient did not have enough days for senior care care home; so, she was discharged home with home health physical therapy. DISCHARGE DIAGNOSES 1. Esophageal stricture. 2. Severe malnutrition. 3. Electrolyte deficiency. 4. Dehydration. 5. Status post esophageal dilatation. SHERRI RUBALCAVA MD Job#: [id number] EV
== END 2018-09-01 15:44 | disposition home health service (06) | DRG 391 ==
LOC: MED/SURG2 16:48
PROVIDERS: ADMIT Internal Medicine; ATTEND Internal Medicine
PROC: 3E0336Z Introduction of Nutritional Substance into Peripheral Vein, Percutaneous Approach (ICD-10-PCS; 2018-08-26)
PROC: 02HV33Z Insertion of Infusion Device into Superior Vena Cava, Percutaneous Approach (ICD-10-PCS; 2018-08-26)
PROC: 0DB98ZX Excision of Duodenum, Via Natural or Artificial Opening Endoscopic, Diagnostic (ICD-10-PCS; 2018-08-28)
PROC: 0D748ZZ Dilation of Esophagogastric Junction, Via Natural or Artificial Opening Endoscopic (ICD-10-PCS; principal; 2018-08-28 12:15)
PROC: 0DB68ZX Excision of Stomach, Via Natural or Artificial Opening Endoscopic, Diagnostic (ICD-10-PCS; 2018-08-28 12:15)
DX: K22.2 Esophageal obstruction (principal); E43 Unspecified severe protein-calorie malnutrition; R64 Cachexia; Z68.1 Body mass index [BMI] 19.9 or less, adult; F31.9 Bipolar disorder, unspecified; R13.10 Dysphagia, unspecified; E86.0 Dehydration; F29 Unspecified psychosis not due to a substance or known physiological condition; K29.70 Gastritis, unspecified, without bleeding; K21.0 Gastro-esophageal reflux disease with esophagitis; Z88.0 Allergy status to penicillin; E87.6 Hypokalemia; E03.9 Hypothyroidism, unspecified
CPT/HCPCS: 36415; 36569; 43239; 43450; 71045; 74230; 74246; 80053; 84134; 84443; 85025; 88305; 88312; 96365; 96366; 97139; J2405; J2765; J3480